=== PATIENT | male | born 1960 | race Caucasian/White ===

== ENCOUNTER 2018-09-04 14:59 | Outpatient (CLI) | payer MEDICARE ==
--- NOTE | 2018-09-04 15:43 | RAD ---
CHEST 2 VIEWS: Date: 09/04/18 HISTORY: R06.00. COMPARISON: Chest radiograph dated 03/15/17. FINDINGS: Lungs without focal confluent air space consolidation, pneumothorax, or effusion. Mild volume loss ri ght hemithorax, chronic. No acute osseous abnormality. Cardiac silhouette and mediastinal contour sim ilar. IMPRESSION: No acute intrathoracic abnormality. POS: [facility]
== END 2018-09-04 15:00 | disposition home or self-care (01) ==
LOC: RAD 14:59
PROVIDERS: ATTEND Internal Medicine Pulmonary Disease
DX: R06.00 Dyspnea, unspecified (principal)
CPT/HCPCS: 71046

== ENCOUNTER 2019-01-10 13:27 | Inpatient (IN) | payer MEDICARE ==
--- NOTE | 2019-01-10 14:27 | RAD ---
TWO VIEWS OF THE CHEST: 01/10/19 COMPARISON: 09/04/18 HISTORY: Chest pain for two days. FINDINGS: Two views of the chest show normal sized cardiomediastinal silhouette. There is no evidence of consol idation, mass, or pleural effusion. The bones are unremarkable. IMPRESSION: No evidence of acute cardiopulmonary disease. POS: [facility]
[2019-01-10 14:33] LABS: #Basophils 0.1 thou/uL (0.0-0.2); #Eosinphils 0.2 thou/uL (0.0-0.7); #Lymphocytes 2.8 thou/uL (1.20-3.40); #Monocytes 1.2 thou/uL (0.11-0.59); #Neutrophils 14.4 thou/uL (1.40-6.50); %Basophils 0.7 % (0.0-1.0); %Eosinophils 1.3 % (0.0-10.0); %Monocytes 6.6 % (0.0-10.0); %Neutrophils 76.4 % (42.0-75.0); Hemoglobin 15.7 g/dL (14.0-18.0); Mean Corpuscular HGB CONC 30.8 g/dL (32.0-36.0); Mean Corpuscular Hemoglobin 26.6 pg (27.0-31.0); Mean Corpuscular Volume 86.4 fL (78.0-98.0); Mean Platelet Volume 7.3 fL (7.4-10.4); Platelet Count 401 thou/uL (130-400); RBC Distribution Width 16.1 % (11.5-14.5); Red Blood Cell (RBC) Count 5.92 mill/uL (4.70-6.10); White Blood Cell (WBC) Count 18.9 thou/uL (4.8-10.8)
[2019-01-10 14:59] LABS: ALT (SGPT) 17 U/L (8-55); AST (SGOT) 17 U/L (5-34); Albumin 4.3 g/dL (3.5-5.0); Alkaline Phosphatase 76 U/L (40-150); Anion Gap 12 mmol/L (10-20); BUN (Urea Nitrogen) 16 mg/dL (8.4-25.7); Bilirubin, Total 0.5 mg/dL (0.2-1.2); CK (CPK) 188 U/L (30-200); Calc. Creatinine Clearance 0 mL/min (70-130); Calcium 10.3 mg/dL (7.8-10.44); Carbon Dioxide 32 mmol/L (22-29); Chloride 100 mmol/L (98-107); Estimated GFR-MDRD 43; Globulin 3.4 g/dL (2.4-3.5); Glucose 87 mg/dL (70-105); Potassium 4.7 mmol/L (3.5-5.1); Protein, Total 7.7 g/dL (6.0-8.3); Sodium 139 mmol/L (136-145)
[2019-01-10 18:02] LABS: Troponin I Less than 0.010 ng/mL (< 0.028)
[2019-01-10] MEDS ORDERED: Nitroglycerin 0.4 MG TAB (25 Tab Bottle) ONE (19:15)
[2019-01-10] MEDS: Morphine 2 MG/ML SYRINGE SLOW IVP PRN (19:22)
[2019-01-10] MEDS: Nitroglycerin 2% Ointment 1 INCH/1 GM Packet TOP SCH (19:27)
[2019-01-10] MEDS ORDERED: Ondansetron ODT 4 MG TAB PO PRN (19:28)
[2019-01-10] MEDS ORDERED: Acetaminophen 325 MG TAB PO PRN (19:28)
[2019-01-10] MEDS ORDERED: Ondansetron PF 4 MG/2 ML Vial IVP PRN (19:28)
[2019-01-10] MEDS ORDERED: Aspirin 325 MG TAB PO SCH (19:30)
[2019-01-10] MEDS ORDERED: HYDROcodone/Acetaminophen 10/325 mg Tablet PO PRN (20:33)
[2019-01-10] MEDS ORDERED: PROVENTIL INHALER 6.7 G (200 INHALATIONS) INH PRN (20:33)
[2019-01-10] MEDS ORDERED: LIDOCAINE TOP PRN (20:45)
[2019-01-10] MEDS: Diazepam 5 MG TAB PO PRN (21:03)
[2019-01-10] MEDS: tiZANidine HCl 4 MG TAB PO SCH (21:03)
[2019-01-10] MEDS: Famotidine 20 MG TAB PO SCH (21:03)
[2019-01-10] MEDS: fentaNYL 100 mcg/hour Patch TD SCH (21:04)
[2019-01-10 21:10] LABS: Troponin I Less than 0.010 ng/mL (< 0.028)
[2019-01-10 22:01] VITALS: BMI 25.7
[2019-01-11] MEDS: Sodium Chloride 0.9% 1,000 ML IV SCH ×2 (00:39→16:15)
--- NOTE | 2019-01-11 04:13 | HP ---
PRIMARY CARE PHYSICIAN: Kelly Landers MD CHIEF COMPLAINT: Chest pain. HISTORY OF PRESENT ILLNESS: Mr. Sinha is a 58-year-old man with past medical history of hypertension, gout, and rheumatoid arthritis, who had presented to [facility] earlier today after he experienced worsening chest pain and chest tightness along with some shortness of breath that is worse with activity. The patient states that these symptoms have been on and off over the last several weeks, he states that he has been under the direct care of Dr. Orellana and had undergone an echo and stress test as outpatient, which had showed signs of an anterior defect along with an ejection fraction between 45% and 50%. Dr. Orellana was planning to take the patient for a heart catheterization later next week. However, the patient states that over the last 2 to 3 days, his chest pain had been getting worse. Therefore, he had wanted to come into the emergency room to be seen for further management. Upon arriving, his portable chest x-ray was found to be normal. Cardiac enzymes were also within normal limits. The patient did display an elevated white count of 18,000. However, he is currently on oral prednisone for his underlying RA and gout, and this is chronic for him. He had denied any fever, chills, any headache, blurred vision, dizziness, any palpitations, abdominal pain, or change in his stool. He states he has a lung mass. He had recently undergone a PET scan for and he is scheduled to get a biopsy for further evaluation. The PET scan results are unknown at this time. The patient states that his bedroom is up on the 2nd floor, and walking up and down the stairs and from his room, symptoms of chest pain, chest tightness, and shortness of breath worsened. Dr. Orellana is aware that the patient is being admitted and plans for heart catheterization in the morning. REVIEW OF SYSTEMS: All other systems reviewed and found to be negative unless mentioned in the HPI. PAST MEDICAL HISTORY: Hypertension, gout, rheumatoid arthritis, and new lung mass. PAST SURGICAL HISTORY: Orthopedic surgery and lower back surgery. PSYCHIATRIC HISTORY: Significant for anxiety. SOCIAL HISTORY: The patient denies any alcohol, tobacco, or illicit drug use. KNOWN ALLERGIES: Antidepressants. CURRENT HOME MEDICATIONS: 1. Albuterol sulfate HFA inhaler one puff inhalation q.6 hours as needed for wheezing and shortness of breath. 2. Amlodipine/valsartan 10/320 one tablet oral daily. 3. Diazepam 5 mg p.o. t.i.d. as needed for anxiety. 4. Fentanyl 100 mcg patch topical every 2 days. 5. Furosemide 40 mg oral daily. 6. Hydrocodone 10/325 mg 1 tablet oral q.6 hours p.r.n. pain. 7. Lidocaine ointment one application topical t.i.d. p.r.n. pain. 8. Prednisone 5 mg p.o. daily. 9. Tizanidine 4 mg p.o. at bedtime. 10. Anoro 62.5 mcg/25 mcg one puff inhalation daily. 11. Nexium 40 mg p.o. daily. 12. Vitamin D3 5000 units p.o. daily. PHYSICAL EXAMINATION: VITAL SIGNS: BP 139/87, pulse 73, respirations 16, temperature 97.8 degrees Fahrenheit, O2 saturations 95% on room air. GENERAL: The patient is awake, alert, and oriented x3. He is currently lying comfortably in bed and in no acute distress. HEENT: Atraumatic, normocephalic. Pupils are round and reactive to light. Extraocular muscles intact. Moist mucous membranes noted. NECK: Soft and supple. Trachea midline. CARDIOVASCULAR: Positive S1 and S2. Regular rate and rhythm. No murmur auscultated. RESPIRATORY: Clear to auscultation bilaterally. No wheezes, rales, or rhonchi. ABDOMEN: Soft and nontender. Bowel sounds present. MUSCULOSKELETAL: Strength 5+ bilaterally upper and lower extremities. Moves all extremities equal. Pedal and radial pulses, 2+ bilaterally. The patient does appear to have a Homans' sign on the left lower extremity; however, no edema noted. NEUROLOGIC: Cranial nerves II through XII grossly intact. No focal deficits noted. Speech intact and normal. Gait, not assessed. SKIN: Warm, dry, and intact. The patient does have some mild ulceration noted diffuse to left foot and several left toes. PSYCHIATRIC: Good mood and affect. LABORATORY DATA: WBC 18.9, RBC 5.92, hemoglobin 15.7, platelets 401. Sodium 139, potassium 4.7, anion gap 12, BUN 16, creatinine 1.64, estimated GFR 43. Troponin less than 0.010 x3. TSH 0.6944. DIAGNOSTIC IMAGING: Portable chest x-ray showed no evidence of acute cardiopulmonary disease. ASSESSMENT AND PLAN: 1. Chest pain, Dr. Orellana is on consult and plans to take the patient down to label machine operator in the morning for cardiac catheterization for further evaluation of his chest pain. The patient recently had an echocardiogram and a cardiac stress test, which showed symptoms of an anterior defect, suspected ischemia noted, and ejection fraction between 45% and 50%. 2. Hypertension. Continue patient's home regimen and monitor blood pressure and other vital signs closely. 3. Possible new lung mass, the patient is under the care of an oncologist and a neon tube bender, Dr. Reyes, as outpatient, who had recently undergone a PET scan. He will likely need further followup for this as outpatient. 4. History of anxiety. Continue patient's home regimen. 5. Left lower extremity pain. Lower extremity Doppler ordered for further evaluation. 6. Deep venous thrombosis and gastrointestinal prophylaxis. 7. Code status is full code. DISPOSITION: Pending further workup and clinical findings. Job ID: [id number]
[2019-01-11 05:20] LABS: #Basophils 0.1 thou/uL (0.0-0.2); #Eosinphils 0.5 thou/uL (0.0-0.7); #Lymphocytes 5.2 thou/uL (1.20-3.40); #Monocytes 1.2 thou/uL (0.11-0.59); #Neutrophils 6.9 thou/uL (1.40-6.50); %Basophils 0.9 % (0.0-1.0); %Eosinophils 3.7 % (0.0-10.0); %Lymphocytes 37.2 % (21.0-51.0); %Monocytes 8.3 % (0.0-10.0); %Neutrophils 49.8 % (42.0-75.0); Hemoglobin 12.9 g/dL (14.0-18.0); Mean Corpuscular HGB CONC 30.8 g/dL (32.0-36.0); Mean Corpuscular Hemoglobin 26.5 pg (27.0-31.0); Mean Corpuscular Volume 86.2 fL (78.0-98.0); Mean Platelet Volume 7.2 fL (7.4-10.4); Platelet Count 334 thou/uL (130-400); RBC Distribution Width 16.1 % (11.5-14.5); Red Blood Cell (RBC) Count 4.87 mill/uL (4.70-6.10); White Blood Cell (WBC) Count 13.9 thou/uL (4.8-10.8)
[2019-01-11 05:37] LABS: Anion Gap 8 mmol/L (10-20); BUN (Urea Nitrogen) 16 mg/dL (8.4-25.7); Calc. Creatinine Clearance 71 mL/min (70-130); Calcium 8.9 mg/dL (7.8-10.44); Carbon Dioxide 27 mmol/L (22-29); Cardiac Risk 7.8 (Less than 4.5); Chloride 104 mmol/L (98-107); Cholesterol 195 mg/dl (< 200 Desired); Estimated GFR-MDRD 53; Glucose 149 mg/dL (70-105); HDL Cholesterol 25 mg/dL (>60 Neg Risk); LDL Cholesterol, Calculated 119 mg/dL; Potassium 3.7 mmol/L (3.5-5.1); Sodium 135 mmol/L (136-145); Triglycerides 254 mg/dL (Less than 150)
[2019-01-11] MEDS ORDERED: hydrALAZINE 20 MG/ML VIAL SLOW IVP PRN (07:43)
[2019-01-11] MEDS ORDERED: Zolpidem Tartrate 5 MG TAB PO PRN (07:43)
[2019-01-11] MEDS ORDERED: Artificial Tears 18 DROP/0.9 ML EA EYE PRN (07:43)
[2019-01-11] MEDS ORDERED: Loratadine 10 MG TAB PO PRN (07:43)
[2019-01-11] MEDS ORDERED: Bisacodyl 10 MG SUPP PR PRN (07:43)
[2019-01-11] MEDS ORDERED: Sodium Chloride 0.65% Nasal 44 ML BOT EA NARE PRN (07:43)
[2019-01-11] MEDS ORDERED: Senokot S 8.6-50 MG TAB PO PRN (07:43)
[2019-01-11] MEDS ORDERED: Cepastat Lozenges 1 LOZ PO PRN (07:43)
[2019-01-11] MEDS ORDERED: Diabetic Tussin 200 MG/10 ML UDCUP PO PRN (07:43)
[2019-01-11] MEDS ORDERED: Calcium Carbonate 500 MG ChewTAB PO PRN (07:43)
[2019-01-11] MEDS: Morphine 2 MG/ML SYRINGE SLOW IVP PRN (08:50)
[2019-01-11] MEDS ORDERED: Aspirin 81 mg Enteric Coated Tablet PO SCH (09:00)
[2019-01-11] MEDS ORDERED: Non-Formulary Item 1 EACH (Amlodipine Besylate/Valsartan [Amlodipine-Valsartan 10-320 Mg] PO SCH (09:00)
[2019-01-11] MEDS ORDERED: Amlodipine 10 MG TAB PO SCH (09:00)
--- NOTE | 2019-01-11 10:19 | PDOC.PN ---
- Subjective Encounter Start Date: 01/11/19 Encounter Start Time: 07:30 -: old records requested/rev Patient seen and examined. No new complaints. No overnight events - Objective Resuscitation Status - Order Detail: 01/10/19 19:28 Resuscitation Status Routine Co-Sign Provider: Resuscitation Status: FULL: Full Resuscitation MAR Reviewed: Yes Vital Signs & Weight: Vital Signs (12 hours) Temp Pulse Resp BP Pulse Ox 01/11/19 08:15 97.5 F L 73 14 116/68 93 L 01/11/19 07:03 70 16 93 L 01/11/19 04:00 97.4 F L 68 18 95/53 L 92 L 01/10/19 23:58 83 94/59 L 01/10/19 23:01 76 16 97 Weight Weight 190 lb 3.2 oz Result Diagrams: 01/11/19 04:52 01/11/19 04:52 EKG Reviewed by me: Yes Phys Exam - Physical Examination Constitutional: NAD HEENT: PERRLA, moist MMs, sclera anicteric Neck: no JVD, supple Respiratory: no wheezing, no rales, no rhonchi Cardiovascular: RRR, no significant murmur, no rub Gastrointestinal: soft, non-tender, no distention, positive bowel sounds Musculoskeletal: no edema, pulses present lef great toe discoloration noted Neurological: non-focal, normal sensation, moves all 4 limbs Lymphatic: no nodes Psychiatric: normal affect, A&O x 3 Skin: no rash, normal turgor Dx/Plan (1) Chest pain Code(s): R07.9 - CHEST PAIN, UNSPECIFIED Status: Acute (2) CKD (chronic kidney disease) stage 3, GFR 30-59 ml/min Code(s): N18.3 - CHRONIC KIDNEY DISEASE, STAGE 3 (MODERATE) Status: Chronic (3) COPD (chronic obstructive pulmonary disease) Status: Chronic (4) Chronic systolic heart failure, ACC/AHA stage C Code(s): I50.22 - CHRONIC SYSTOLIC (CONGESTIVE) HEART FAILURE Status: Chronic (5) GERD (gastroesophageal reflux disease) Code(s): K21.9 - GASTRO-ESOPHAGEAL REFLUX DISEASE WITHOUT ESOPHAGITIS Status: Chronic (6) Gout Code(s): M10.9 - GOUT, UNSPECIFIED Status: Chronic (7) Hypertension Code(s): I10 - ESSENTIAL (PRIMARY) HYPERTENSION Status: Chronic (8) Rheumatoid arthritis Code(s): M06.9 - RHEUMATOID ARTHRITIS, UNSPECIFIED Status: Chronic - Plan cont current plan of care, plan discussed w/ family * today cardiac cath and further plan based on cardiac cath result * medication reviewed as below * symptomatic treatment. Review of Systems - Review of Systems ENT: negative: Ear Pain, Ear Discharge, Nose Pain, Nose Discharge, Nose Congestion, Mouth Pain, Mouth Swelling, Throat Pain, Throat Swelling, Other Respiratory: negative: Cough, Dry, Shortness of Breath, Hemoptysis, SOB with Excertion, Pleuritic Pain, Sputum, Wheezing Cardiovascular: negative: chest pain, palpitations, orthopnea, paroxysmal nocturnal dyspnea, edema, light headedness, other Gastrointestinal: negative: Nausea, Vomiting, Abdominal Pain, Diarrhea, Constipation, Melena, Hematochezia, Other Genitourinary: negative: Dysuria, Frequency, Incontinence, Hematuria, Retention , Other Musculoskeletal: negative: Neck Pain, Shoulder Pain, Arm Pain, Back Pain, Hand Pain, Leg Pain, Foot Pain, Other - Medications/Allergies Allergies/Adverse Reactions: Allergies Allergy/AdvReac Type Severity Reaction Status Date / Time No Known Allergies Allergy Unverified 01/10/19 23:24 Medications: Current Medications Acetaminophen (Tylenol) 650 mg PO Q4H PRN PRN Reason: Headache/Fever/Mild Pain (1-3) Hydrocodone Bitart/Acetaminophen ([place] 5/325) 1 tab PO Q4H PRN PRN Reason: Moderate Pain (4-6) Albuterol Sulfate (Proventil Hfa) 1 puff INH Q6HR PRN PRN Reason: Wheezing Albuterol/Ipratropium (Duoneb) 3 ml NEB [id number] [facility] Last Admin: 01/11/19 07:03 Dose: 3 ml Amlodipine Besylate (Norvasc) 10 mg PO DAILY [facility] Artificial Tears (Tears Naturale) 2 drop EA EYE PRN PRN PRN Reason: Dry Eyes Aspirin (Ecotrin) 81 mg PO DAILY [facility] Bisacodyl (Dulcolax) 10 mg [place] DAILYPRN PRN PRN Reason: Constipation Calcium Carbonate (Tums) 1,000 mg PO Q4H PRN PRN Reason: Heartburn or Indigestion Cholecalciferol (Vitamin D3) 5,000 units PO DAILY [facility] Diazepam (Valium) 5 mg PO TID PRN PRN Reason: Anxiety Last Admin: 01/10/19 21:03 Dose: 5 mg Enoxaparin Sodium (Lovenox) 40 mg SC 0900 [facility] Famotidine (Pepcid) 20 mg PO BID [facility] Last Admin: 01/10/19 21:03 Dose: 20 mg Fentanyl (Duragesic) 100 mcg TD Q2D [facility] Last Admin: 01/10/19 21:04 Dose: Not Given Furosemide (Lasix) 40 mg PO DAILY [facility] Guaifenesin (Robitussin Sf) 200 mg PO Q4H PRN PRN Reason: Cough Hydralazine HCl (Apresoline) 10 mg SLOW IVP Q4H PRN PRN Reason: SBP > 180 and HR < 70 Sodium Chloride (Normal Saline 0.9%) 1,000 mls @ 100 mls/hr IV .Q10H [facility] Last Admin: 01/11/19 00:39 Dose: 1,000 mls Loratadine (Claritin) 10 mg PO DAILYPRN PRN PRN Reason: Sinus Symptoms Morphine Sulfate (Morphine) 2 mg SLOW IVP Q4H PRN PRN Reason: Chest Pain Last Admin: 01/11/19 08:50 Dose: 2 mg Nitroglycerin (Nitro-Bid 2% Ointment) 1 inch TOP BID [facility] Last Admin: 01/10/19 19:27 Dose: 1 inch Ondansetron HCl (Zofran Odt) 4 mg PO Q6H PRN PRN Reason: Nausea/Vomiting Ondansetron HCl (Zofran) 4 mg IVP Q6H PRN PRN Reason: Nausea/Vomiting Lidocaine [Lidocaine (5% Ointment]) 0 each TOP TID PRN PRN Reason: Pain Prednisone (Prednisone) 5 mg PO DAILY [facility] Senna/Docusate Sodium (Senokot S) 2 tab PO BID PRN PRN Reason: Constipation Sodium Chloride (Flush - Normal Saline) 10 ml IVF Q12HR [facility] Last Admin: 01/10/19 21:04 Dose: 10 ml Sodium Chloride (Flush - Normal Saline) 10 ml IVF PRN PRN PRN Reason: Saline Flush Sodium Chloride ([place] Nasal [place] 0.65%) 0 ml EA NARE QIDPRN PRN PRN Reason: Nasal Congestion Throat Lozenges (Cepastat Lozenges) 1 yariel PO Q2H PRN PRN Reason: Sore Throat Tizanidine HCl (Zanaflex) 4 mg PO HS [facility] Last Admin: 01/10/19 21:03 Dose: 4 mg Valsartan (Diovan) 320 mg PO DAILY [facility] Zolpidem Tartrate (Ambien) 5 mg PO HSPRN PRN PRN Reason: Insomnia
--- NOTE | 2019-01-11 10:46 | ULT ---
EXAM: Left lower extremity venous duplex: Deep veins evaluated with color Doppler, spectral analysis, and compression. INDICATIONS: Left lower extremity pain and edema. FINDINGS: Deep veins interrogated include common femoral vein, femoral vein, popliteal vein, and post erior tibial vein. These veins show normal compression and blood flow. No evidence of DVT. IMPRESSION: Negative Left venous duplex exam.
[2019-01-11] MEDS ORDERED: Lidocaine 1% (PF) 30 ML VIAL ONE (12:14)
[2019-01-11] MEDS ORDERED: Fentanyl 100 MCG/2 ML VIAL ONE (13:05)
[2019-01-11] MEDS ORDERED: Midazolam HCl 2 mg/2 ml Vial ONE (13:05)
[2019-01-11] MEDS ORDERED: Nitroglycerin 100MG/250ML BOT 250 ML ONE (13:17)
[2019-01-11] MEDS ORDERED: Heparin 10,000 UNITS/1 ML VIAL ONE (13:29)
[2019-01-11] MEDS ORDERED: TICAGRELOR 90 MG TABLET ONE (13:54)
[2019-01-11] MEDS ORDERED: Morphine 4 MG/ML VIAL SLOW IVP PRN (13:55)
[2019-01-11] MEDS ORDERED: Nitroglycerin 0.4 MG TAB (25 Tab Bottle) SL PRN (13:55)
--- NOTE | 2019-01-11 14:29 | CON ---
DATE OF CONSULTATION: 01/11/2019 REASON FOR CONSULTATION: Chest pain. HISTORY OF PRESENT ILLNESS: Mr. Sinha is a pleasant 58-year-old white gentleman, who comes to the hospital for chest pain. He has been following up with me. He had a recent stress test that showed anterior ischemia and he was scheduled to have a heart catheterization on 16 of this month. He comes in as his pain is getting worse, so he was admitted for further evaluation and care. He has been ruled out for non-STEMI. However, he has a known defect on his MPI. PAST MEDICAL HISTORY: 1. Hypertension. 2. Gout. 3. Rheumatoid arthritis. 4. Lung mass that has not been worked up. SURGICAL HISTORY: 1. Low back surgery. 2. Some sort of orthopedic surgery. SOCIAL HISTORY: No alcohol, tobacco, or drugs. OUTPATIENT MEDICATIONS: Include; 1. Albuterol inhaler. 2. Amlodipine/valsartan 10/320 a day. 3. Diazepam. 4. Fentanyl patch. 5. Furosemide 40 mg a day. 6. Hydrocodone p.r.n. 7. Lidocaine topical p.r.n. 8. Prednisone 5 mg a day. 9. Tizanidine. 10. Anoro Ellipta. 11. Nexium 40 mg a day. 12. Vitamin D3. ALLERGIES: ANTIDEPRESSANT. REVIEW OF SYSTEMS: A 12-point review of systems was done and was all negative unless stated in the history of present illness. PHYSICAL EXAMINATION: VITAL SIGNS: Temperature 98.4, pulse 67, respiratory rate 16, sat 95% on room air, blood pressure 115/70. GENERAL: Awake, alert, and oriented x3, in no distress. HEENT: Normocephalic and atraumatic. NECK: Supple. LUNGS: Clear. CARDIOVASCULAR: S1, S2. No S3 or S4. No murmurs. ABDOMEN: Soft. Positive bowel sounds. EXTREMITIES: No edema. SKIN: Warm and dry. LABORATORY DATA: Laboratory work was reviewed. White count elevated 18 down to 13, hemoglobin 12, hematocrit 42, platelet count of 334. Chemistries were reviewed. Creatinine was 1.6 on admission, down 1.3. Troponin was negative x3. TSH is normal. Triglycerides of 254, cholesterol 195, LDL of 119, HDL of 25. ASSESSMENT AND PLAN: 1. Chest pain. Likely cardiac in nature with an abnormal stress test with anterior ischemia on MPI. We will plan on taking him to the catheterization lab for further evaluation. We spoke at length of the risks and benefits of the procedure. We had already spoken about this in the past. He agrees to proceed sooner now. 2. Further recommendations per results of coronary angiogram. Job ID: [id number]
[2019-01-11] MEDS ORDERED: Iopamidol 370 76% 50 ML VIAL FS ONE (15:45)
[2019-01-11] MEDS ORDERED: Iopamidol 370 76% 100 ML VIAL ONE (15:45)
[2019-01-11] MEDS: Enoxaparin Sodium 40 MG/0.4 ML SYRINGE SC SCH (16:12)
[2019-01-11] MEDS: Famotidine 20 MG TAB PO SCH ×2 (16:12→20:22)
[2019-01-11] MEDS: Nitroglycerin 2% Ointment 1 INCH/1 GM Packet TOP SCH ×2 (16:13→20:26)
[2019-01-11] MEDS: Furosemide 40 MG TAB PO SCH (16:23)
[2019-01-11] MEDS: predniSONE 5 MG TAB PO SCH (16:23)
[2019-01-11] MEDS: Carvedilol 3.125 MG TAB PO SCH (16:23)
[2019-01-11] MEDS: Valsartan 80 MG TAB PO SCH (16:24)
[2019-01-11] MEDS: fentaNYL 100 mcg/hour Patch TD SCH (17:24)
[2019-01-11] MEDS: Diazepam 5 MG TAB PO PRN (19:22)
[2019-01-11] MEDS: Atorvastatin Calcium 40 MG TAB PO SCH (20:22)
[2019-01-11] MEDS: tiZANidine HCl 4 MG TAB PO SCH (20:24)
[2019-01-11] MEDS: TICAGRELOR 90 MG TABLET PO SCH (20:24)
[2019-01-12 06:12] LABS: #Basophils 0.1 thou/uL (0.0-0.2); #Eosinphils 0.4 thou/uL (0.0-0.7); #Lymphocytes 4.1 thou/uL (1.20-3.40); #Monocytes 1.1 thou/uL (0.11-0.59); %Basophils 0.8 % (0.0-1.0); %Eosinophils 2.9 % (0.0-10.0); %Lymphocytes 27.7 % (21.0-51.0); %Monocytes 7.5 % (0.0-10.0); %Neutrophils 61.1 % (42.0-75.0); Hemoglobin 14.8 g/dL (14.0-18.0); Mean Corpuscular HGB CONC 29.1 g/dL (32.0-36.0); Mean Corpuscular Hemoglobin 24.9 pg (27.0-31.0); Mean Corpuscular Volume 85.7 fL (78.0-98.0); Mean Platelet Volume 7.6 fL (7.4-10.4); Platelet Count 356 thou/uL (130-400); RBC Distribution Width 16.7 % (11.5-14.5); Red Blood Cell (RBC) Count 5.92 mill/uL (4.70-6.10); White Blood Cell (WBC) Count 14.8 thou/uL (4.8-10.8)
[2019-01-12 06:35] LABS: ALT (SGPT) 13 U/L (8-55); AST (SGOT) 15 U/L (5-34); Albumin 3.7 g/dL (3.5-5.0); Alkaline Phosphatase 69 U/L (40-150); Anion Gap 11 mmol/L (10-20); BUN (Urea Nitrogen) 11 mg/dL (8.4-25.7); Bilirubin, Total 0.4 mg/dL (0.2-1.2); Calc. Creatinine Clearance 74 mL/min (70-130); Calcium 9.6 mg/dL (7.8-10.44); Carbon Dioxide 27 mmol/L (22-29); Chloride 103 mmol/L (98-107); Estimated GFR-MDRD 59; Globulin 3.1 g/dL (2.4-3.5); Glucose 106 mg/dL (70-105); Potassium 3.7 mmol/L (3.5-5.1); Protein, Total 6.8 g/dL (6.0-8.3); Sodium 137 mmol/L (136-145)
[2019-01-12] MEDS: Carvedilol 3.125 MG TAB PO SCH ×2 (09:48→15:51)
[2019-01-12] MEDS: Valsartan 80 MG TAB PO SCH (09:48)
[2019-01-12] MEDS: Aspirin Chewable 81 MG TAB PO SCH (09:48)
[2019-01-12] MEDS: predniSONE 5 MG TAB PO SCH (09:49)
[2019-01-12] MEDS: TICAGRELOR 90 MG TABLET PO SCH (09:49)
[2019-01-12] MEDS: Famotidine 20 MG TAB PO SCH ×2 (09:50→20:52)
[2019-01-12] MEDS: Furosemide 40 MG TAB PO SCH (09:50)
[2019-01-12] MEDS: Nitroglycerin 2% Ointment 1 INCH/1 GM Packet TOP SCH ×2 (09:52→21:15)
[2019-01-12] MEDS: Diazepam 5 MG TAB PO PRN ×2 (09:57→20:52)
[2019-01-12] MEDS: HYDROcodone/Acetaminophen 5/325 mg Tablet PO PRN (09:58)
[2019-01-12] MEDS: Enoxaparin Sodium 40 MG/0.4 ML SYRINGE SC SCH (10:00)
--- NOTE | 2019-01-12 10:25 | PDOC.PN ---
- Subjective Encounter Start Date: 01/12/19 Encounter Start Time: 07:50 Patient seen and examined. No new complaints. No overnight events - Objective Resuscitation Status - Order Detail: 01/10/19 19:28 Resuscitation Status Routine Co-Sign Provider: Resuscitation Status: FULL: Full Resuscitation MAR Reviewed: Yes Vital Signs & Weight: Vital Signs (12 hours) Temp Pulse Resp BP Pulse Ox 01/12/19 08:00 97.1 F L 70 16 143/89 H 95 01/12/19 07:19 79 20 95 01/12/19 04:15 98 F 68 12 143/70 H 96 01/12/19 00:18 94 L Weight Weight 183 lb 11.2 oz I&O: 01/11/19 01/12/19 01/13/19 06:59 06:59 06:59 Intake Total 540 Output Total 750 Balance -210 Result Diagrams: 01/12/19 05:30 01/12/19 05:30 EKG Reviewed by me: Yes Phys Exam - Physical Examination Constitutional: NAD HEENT: PERRLA, moist MMs, sclera anicteric Neck: no JVD, supple Respiratory: no wheezing, no rales, no rhonchi Cardiovascular: RRR, no significant murmur, no rub Gastrointestinal: soft, non-tender, no distention, positive bowel sounds Musculoskeletal: no edema, pulses present Neurological: non-focal, normal sensation, moves all 4 limbs Lymphatic: no nodes Psychiatric: normal affect, A&O x 3 Skin: no rash, normal turgor Dx/Plan (1) Chest pain Code(s): R07.9 - CHEST PAIN, UNSPECIFIED Status: Acute (2) CKD (chronic kidney disease) stage 3, GFR 30-59 ml/min Code(s): N18.3 - CHRONIC KIDNEY DISEASE, STAGE 3 (MODERATE) Status: Chronic (3) COPD (chronic obstructive pulmonary disease) Status: Chronic (4) GERD (gastroesophageal reflux disease) Code(s): K21.9 - GASTRO-ESOPHAGEAL REFLUX DISEASE WITHOUT ESOPHAGITIS Status: Chronic (5) Gout Code(s): M10.9 - GOUT, UNSPECIFIED Status: Chronic (6) Hypertension Code(s): I10 - ESSENTIAL (PRIMARY) HYPERTENSION Status: Chronic (7) Rheumatoid arthritis Code(s): M06.9 - RHEUMATOID ARTHRITIS, UNSPECIFIED Status: Chronic (8) CAD (coronary artery disease) Code(s): I25.10 - ATHSCL HEART DISEASE OF [place] CORONARY ARTERY W/O ANG PCTRS Status: Acute Comment: found with severe mild LAD lesion, s/p BMS placement (9) S/P coronary artery stent placement Status: Acute Comment: BMS placement in mid LAD (10) Chronic stage c diastolic heart failure Code(s): I50.32 - CHRONIC DIASTOLIC (CONGESTIVE) HEART FAILURE Status: Chronic (11) Cellulitis of toe, left Code(s): L03.032 - CELLULITIS OF LEFT TOE Status: Acute - Plan cont current plan of care, plan discussed w/ family, continue antibiotics * add keflex * check uric acid,and crp * medication reviewed as below * symptomatic treatment * spoke with oncology and recommended outpt follow up. Review of Systems - Review of Systems ENT: negative: Ear Pain, Ear Discharge, Nose Pain, Nose Discharge, Nose Congestion, Mouth Pain, Mouth Swelling, Throat Pain, Throat Swelling, Other Respiratory: negative: Cough, Dry, Shortness of Breath, Hemoptysis, SOB with Excertion, Pleuritic Pain, Sputum, Wheezing Cardiovascular: negative: chest pain, palpitations, orthopnea, paroxysmal nocturnal dyspnea, edema, light headedness, other Gastrointestinal: negative: Nausea, Vomiting, Abdominal Pain, Diarrhea, Constipation, Melena, Hematochezia, Other Genitourinary: negative: Dysuria, Frequency, Incontinence, Hematuria, Retention , Other Musculoskeletal: negative: Neck Pain, Shoulder Pain, Arm Pain, Back Pain, Hand Pain, Leg Pain, Foot Pain, Other Skin: negative: Rash, Lesions, Bereket, Bruising, Other - Medications/Allergies Allergies/Adverse Reactions: Allergies Allergy/AdvReac Type Severity Reaction Status Date / Time No Known Allergies Allergy Unverified 01/10/19 23:24 Medications: Current Medications Acetaminophen (Tylenol) 650 mg PO Q4H PRN PRN Reason: Headache/Fever/Mild Pain (1-3) Hydrocodone Bitart/Acetaminophen ([place] 5/325) 1 tab PO Q4H PRN PRN Reason: Moderate Pain (4-6) Last Admin: 01/12/19 09:58 Dose: 1 tab Albuterol Sulfate (Proventil Hfa) 1 puff INH Q6HR PRN PRN Reason: Wheezing Albuterol/Ipratropium (Duoneb) 3 ml NEB [id number] [facility] Last Admin: 01/12/19 07:19 Dose: 3 ml Artificial Tears (Tears Naturale) 2 drop EA EYE PRN PRN PRN Reason: Dry Eyes Aspirin (Aspirin Chewable) 81 mg PO DAILY [facility] Last Admin: 01/12/19 09:48 Dose: 81 mg Atorvastatin Calcium (Lipitor) 80 mg PO HS [facility] Last Admin: 01/11/19 20:22 Dose: 80 mg Bisacodyl (Dulcolax) 10 mg [place] DAILYPRN PRN PRN Reason: Constipation Calcium Carbonate (Tums) 1,000 mg PO Q4H PRN PRN Reason: Heartburn or Indigestion Carvedilol (Coreg) 3.125 mg PO BID[facility] Last Admin: 01/12/19 09:48 Dose: 3.125 mg Cholecalciferol (Vitamin D3) 5,000 units PO DAILY [facility] Last Admin: 01/12/19 09:47 Dose: 5,000 units Diazepam (Valium) 5 mg PO TID PRN PRN Reason: Anxiety Last Admin: 01/12/19 09:57 Dose: 5 mg Enoxaparin Sodium (Lovenox) 40 mg SC 0900 [facility] Last Admin: 01/12/19 10:00 Dose: 40 mg Famotidine (Pepcid) 20 mg PO BID [facility] Last Admin: 01/12/19 09:50 Dose: 20 mg Fentanyl (Duragesic) 100 mcg TD Q2D [facility] Last Admin: 01/11/19 17:24 Dose: 100 mcg Furosemide (Lasix) 40 mg PO DAILY [facility] Last Admin: 01/12/19 09:50 Dose: 40 mg Guaifenesin (Robitussin Sf) 200 mg PO Q4H PRN PRN Reason: Cough Hydralazine HCl (Apresoline) 10 mg SLOW IVP Q4H PRN PRN Reason: SBP > 180 and HR < 70 Loratadine (Claritin) 10 mg PO DAILYPRN PRN PRN Reason: Sinus Symptoms Morphine Sulfate (Morphine) 2 mg SLOW IVP Q4H PRN PRN Reason: Chest Pain Last Admin: 01/11/19 08:50 Dose: 2 mg Morphine Sulfate (Morphine) 2 mg SLOW IVP Q4H PRN PRN Reason: Moderate Chest Pain (4-6) Nitroglycerin (Nitro-Bid 2% Ointment) 1 inch TOP BID [facility] Last Admin: 01/12/19 09:52 Dose: 1 inch Nitroglycerin (Nitrostat) 0.4 mg SL Q5MIN PRN PRN Reason: Chest Pain Ondansetron HCl (Zofran Odt) 4 mg PO Q6H PRN PRN Reason: Nausea/Vomiting Ondansetron HCl (Zofran) 4 mg IVP Q6H PRN PRN Reason: Nausea/Vomiting Lidocaine [Lidocaine (5% Ointment]) 0 each TOP TID PRN PRN Reason: Pain Prednisone (Prednisone) 5 mg PO DAILY [facility] Last Admin: 01/12/19 09:49 Dose: 5 mg Senna/Docusate Sodium (Senokot S) 2 tab PO BID PRN PRN Reason: Constipation Sodium Chloride (Flush - Normal Saline) 10 ml IVF Q12HR [facility] Last Admin: 01/12/19 09:53 Dose: 10 ml Sodium Chloride (Flush - Normal Saline) 10 ml IVF PRN PRN PRN Reason: Saline Flush Sodium Chloride ([place] Nasal [place] 0.65%) 0 ml EA NARE QIDPRN PRN PRN Reason: Nasal Congestion Throat Lozenges (Cepastat Lozenges) 1 yariel PO Q2H PRN PRN Reason: Sore Throat Ticagrelor (Brilinta) 90 mg PO BID [facility] Last Admin: 01/12/19 09:49 Dose: 90 mg Tizanidine HCl (Zanaflex) 4 mg PO HS [facility] Last Admin: 01/11/19 20:24 Dose: 4 mg Valsartan (Diovan) 320 mg PO DAILY [facility] Last Admin: 01/12/19 09:48 Dose: 320 mg Zolpidem Tartrate (Ambien) 5 mg PO HSPRN PRN PRN Reason: Insomnia
[2019-01-12 11:48] LABS: CRP (Inflammatory) Less than 0.50 mg/dL (= or < 0.5); Uric Acid 7.5 mg/dL (3.5-7.2)
--- NOTE | 2019-01-12 15:33 | PDOC.CTH ---
Cardiology Progress Note - Subjective Since his stent yesterday he feels better overall but has this sensation of SOB which he did not have before his stents. - Objective Vital Signs Temp Pulse Pulse Pulse Resp BP BP 01/12/19 13:07 86 16 01/12/19 11:54 96.6 F L 92 18 01/12/19 10:55 91 93 137/71 110/68 01/12/19 08:00 97.1 F L 70 16 01/12/19 07:19 79 20 01/12/19 04:15 98 F 68 12 BP Pulse Ox Pulse Ox Pulse Ox 01/12/19 13:07 95 01/12/19 11:54 110/68 95 01/12/19 10:55 92 L 96 01/12/19 08:00 143/89 H 96 01/12/19 07:19 95 01/12/19 04:15 143/70 H 96 Weight 183 lb 11.2 oz 01/11/19 01/12/19 01/13/19 06:59 06:59 06:59 Intake Total 540 Output Total 750 Balance -210 - Physical Examination General/Neuro: alert & oriented x3, NAD Neck: no JVD present Lungs: CTA, unlabored respirations Heart: RRR Abdomen: NT/ND Extremities: + edema B (no edema) - Telemetry Telemetry Rhythm: NSR - Labs Result Diagrams: 01/12/19 05:30 01/12/19 05:30 Troponin/CKMB Troponin I Less than 0.010 ng/mL (< 0.028) 01/10/19 20:39 - Assessment/Plan 1. Unstable angina 2. CAD 3. S/P BMS to mid LAD. 4. SOB 5. PVD PLAN: - The SOB he is describing is typical of a side effect from brilinta. Will plan on switching to Plavix. - Hold overnight and if he remains stable in the morning may discharge home. - Follow up in the office in 1 month.
[2019-01-12] MEDS: Cephalexin 250 MG CAP PO SCH ×2 (15:51→20:51)
[2019-01-12] MEDS: Atorvastatin Calcium 40 MG TAB PO SCH (20:51)
[2019-01-12] MEDS: tiZANidine HCl 4 MG TAB PO SCH (20:52)
[2019-01-13] MEDS: HYDROcodone/Acetaminophen 5/325 mg Tablet PO PRN (04:15)
[2019-01-13 06:34] LABS: #Basophils 0.1 thou/uL (0.0-0.2); #Eosinphils 0.6 thou/uL (0.0-0.7); #Lymphocytes 5.5 thou/uL (1.20-3.40); #Monocytes 1.5 thou/uL (0.11-0.59); #Neutrophils 9.2 thou/uL (1.40-6.50); %Basophils 0.8 % (0.0-1.0); %Eosinophils 3.6 % (0.0-10.0); %Lymphocytes 32.3 % (21.0-51.0); %Monocytes 9.1 % (0.0-10.0); %Neutrophils 54.3 % (42.0-75.0); Hemoglobin 14.7 g/dL (14.0-18.0); Mean Corpuscular HGB CONC 31.3 g/dL (32.0-36.0); Mean Corpuscular Hemoglobin 26.9 pg (27.0-31.0); Mean Corpuscular Volume 85.8 fL (78.0-98.0); Mean Platelet Volume 7.8 fL (7.4-10.4); Platelet Count 340 thou/uL (130-400); RBC Distribution Width 16.4 % (11.5-14.5); Red Blood Cell (RBC) Count 5.47 mill/uL (4.70-6.10); White Blood Cell (WBC) Count 16.9 thou/uL (4.8-10.8)
[2019-01-13] MEDS ORDERED: Clopidogrel Bisulfate 75 MG TAB PO SCH (09:00)
--- NOTE | 2019-01-13 09:30 | PDOC.CTH ---
Cardiology Progress Note - Subjective Patient with c/o SOB again today. SOB with exertion. Denies CP. Denies palpitations. - Objective Vital Signs Temp Pulse Resp BP Pulse Ox 01/13/19 06:57 74 16 94 L 01/13/19 04:00 97.6 F 85 16 118/72 95 01/13/19 00:48 79 14 94 L Weight 184 lb 14.4 oz 01/12/19 01/13/19 01/14/19 06:59 06:59 06:59 Intake Total 540 1110 Output Total 750 700 Balance -210 410 - Physical Examination General/Neuro: alert & oriented x3 Neck: no JVD present Lungs: CTA Heart: RRR Abdomen: NT/ND Extremities: other: (no edema) - Telemetry Telemetry Rhythm: SR - Labs Result Diagrams: 01/13/19 06:09 01/12/19 05:30 Troponin/CKMB Troponin I Less than 0.010 ng/mL (< 0.028) 01/10/19 20:39 - Assessment/Plan 1. Unstable angina 2. CAD 3. S/P BMS to mid LAD. 4. SOB 5. PVD PLAN: SOB unchanged despite changing Brilinta to Plavix. May improve with time. EF 50 % on LHC. Will repeat CXR and add BNP. If normal, discharge today. SOB may be due to underlying COPD
[2019-01-13] MEDS: Famotidine 20 MG TAB PO SCH (09:32)
[2019-01-13] MEDS: predniSONE 5 MG TAB PO SCH (09:32)
[2019-01-13] MEDS: Furosemide 40 MG TAB PO SCH (09:32)
[2019-01-13] MEDS: Aspirin Chewable 81 MG TAB PO SCH (09:32)
[2019-01-13] MEDS: Valsartan 80 MG TAB PO SCH (09:33)
[2019-01-13] MEDS: Cephalexin 250 MG CAP PO SCH (09:33)
[2019-01-13] MEDS: Carvedilol 3.125 MG TAB PO SCH (09:34)
[2019-01-13] MEDS: Nitroglycerin 2% Ointment 1 INCH/1 GM Packet TOP SCH (09:35)
[2019-01-13] MEDS: Enoxaparin Sodium 40 MG/0.4 ML SYRINGE SC SCH (09:35)
--- NOTE | 2019-01-13 10:26 | RAD ---
Portable chest: HISTORY: Shortness of breath COMPARISON: none FINDINGS: Lung martin are clear. Heart and mediastinum appear unremarkable. Vascularity is normal. Visualized osseous structures unremarkable. IMPRESSION: No acute finding
[2019-01-13] MEDS: Diazepam 5 MG TAB PO PRN (10:48)
--- NOTE | 2019-01-13 11:11 | DIS ---
DATE OF ADMISSION: 01/10/2019 DATE OF DISCHARGE: 01/13/2019 DISCHARGE DISPOSITION: Home. PRIMARY DISCHARGE DIAGNOSES: 1. Dyspnea due to angina equivalent. 2. Status post cardiac cath and found with mid LAD stenosis, status post bare-metal stent placement. 3. Left great toe cellulitis. 4. Chest pain due to coronary artery disease. SECONDARY DISCHARGE DIAGNOSES: 1. Rheumatoid arthritis. 2. Hypertension. 3. Gout. 4. Gastroesophageal reflux disease. 5. Chronic obstructive pulmonary disease. 6. Chronic kidney disease stage 3. 7. Chronic stage C diastolic heart failure. 8. History of lung cancer. PRIMARY PROCEDURE/OPERATION: Cardiac catheterization was performed by Dr. Orellana and found with mid LAD lesion and bare-metal stent placed. RADIOLOGICAL INVESTIGATION: Chest x-ray negative. Repeat chest x-ray negative. Ultrasound negative for DVT. SIGNIFICANT LABORATORY DATA: Hemoglobin 14.7, WBC 16.9, platelets 340. Sodium 137, creatinine 1.26. LFT normal. Cardiac enzyme negative. LDL 119. TSH 0.69. DISCHARGE MEDICATIONS: 1. Aspirin 81 mg p.o. daily. 2. Plavix 75 mg p.o. daily. 3. Lipitor 80 mg p.o. at bedtime. 4. Coreg 3.125 mg p.o. b.i.d. 5. Keflex 500 mg p.o. t.i.d. Continue following medications; 1. Ventolin HFA one puff q.6 hourly p.r.n. 2. Vista 10 one tablet q.6 hourly p.r.n. 3. Amlodipine with valsartan 10/320 one tablet daily. 4. Vitamin D3 of 5000 units p.o. daily. 5. Diazepam 5 mg t.i.d. p.r.n. 6. Nexium 40 mg daily. 7. Duragesic patch every third day. 8. Lasix 40 mg p.o. daily. 9. Lidoderm ointment as directed. 10. Prednisone 10 mg daily. 11. Zanaflex 4 mg p.o. at bedtime. 12. Breo Ellipta one inhalation daily. CONTRAINDICATION: None. CODE STATUS: Full code. INPATIENT REAL ESTATE PHOTOGRAPHER: Dr. Orellana was following while in hospital. TEST RESULTS PENDING ON DISCHARGE: None. ALLERGIES: NO KNOWN DRUG ALLERGY. DISCHARGE PLAN: Posthospital, the patient will follow up with Dr. Orellana and Dr. Landers. The patient is also instructed to follow up with Dr. Moreno. HOSPITAL COURSE: A 58-year-old male, who was having outpatient basis chest pain and dyspnea and that is why Dr. Orellana did a stress test that was abnormal and he was directed to admission. He had negative cardiac enzymes during this hospital course, but he was keep complaining of shortness of breath. His chest x-ray was unremarkable. He was also complaining of left great toe pain and that is why we treated his cellulitis of left great toe with antibiotic. He remained afebrile while in hospital. Cardiology did cardiac cath and he was found with severe mid LAD lesion and he required bare-metal stent placement in his mid LAD. He was started initially on Brilinta, but he was not tolerating that medication and that is why medication was changed to Plavix. This patient has normal EF. We started above-mentioned new medication, all new medication prescription sent to local pharmacy. Overall, the patient is doing much better. He has leukocytosis, but his x-ray is clean and he does not have any fever. PHYSICAL EXAMINATION: VITAL SIGNS: Temperature 97.2, pulse 85, respiratory rate 16, saturation 95%, blood pressure 121/71, weight 184 pounds. GENERAL: The patient is currently alert, awake, no obvious acute distress. HEAD: Normocephalic and atraumatic. Eyes; pupils round, reactive to light. Extraocular muscle intact. ENT: Oropharynx within normal limits. LUNGS: Clear to auscultation without any rhonchi or rales. CARDIAC: S1 and S2 regular without any murmur. ABDOMEN: Soft and benign. EXTREMITIES: No edema. NEUROLOGIC: Nonfocal examination. Overall, the patient is medically stable for discharge. During this admission, we spoke with Oncology and they recommended that this patient has not seen Oncology for about 2 couple of years and they recommended outpatient followup with him. The patient agreed with that plan. Job ID: [id number]
--- NOTE | 2019-01-13 12:55 | EKG ---
Test Reason : ER INDICATION Blood Pressure : / mmHG Vent. Rate : 087 BPM Atrial Rate : 087 BPM P-R Int : 154 ms QRS Dur : 088 ms QT Int : 338 ms P-R-T Axes : 035 021 022 degrees QTc Int : 406 ms Normal sinus rhythm Normal ECG Confirmed by TRAY BASILIO MD ([id number]), commissioning editor SRINIVASAN LY ([id number]) on 01/13/2019 12:54:59 PM Referred By: Confirmed By:TRAY BASILIO MD
[2019-01-13 14:20] VITALS: BP 124/75; TEMP 96.8
--- NOTE | 2019-01-15 16:44 | EKG ---
Test Reason : Blood Pressure : / mmHG Vent. Rate : 072 BPM Atrial Rate : 072 BPM P-R Int : 198 ms QRS Dur : 092 ms QT Int : 378 ms P-R-T Axes : 051 033 029 degrees QTc Int : 413 ms Normal sinus rhythm Normal ECG Confirmed by LOREN PIERCE ([id number]) on 01/15/2019 4:44:27 PM Referred By: SHERLY Confirmed By:LOREN PIERCE
== END 2019-01-13 14:35 | disposition home or self-care (01) | DRG 249 ==
LOC: ERS 13:27 → 2NO 19:05
PROVIDERS: ADMIT Internal Medicine; ATTEND Internal Medicine
PROC: 02703DZ Dilation of Coronary Artery, One Artery with Intraluminal Device, Percutaneous Approach (ICD-10-PCS; principal; 2019-01-10)
PROC: 4A023N7 Measurement of Cardiac Sampling and Pressure, Left Heart, Percutaneous Approach (ICD-10-PCS; 2019-01-10)
PROC: B2111ZZ Fluoroscopy of Multiple Coronary Arteries using Low Osmolar Contrast (ICD-10-PCS; 2019-01-10)
PROC: B2151ZZ Fluoroscopy of Left Heart using Low Osmolar Contrast (ICD-10-PCS; 2019-01-10)
DX: I25.110 Atherosclerotic heart disease of native coronary artery with unstable angina pectoris (principal); I13.0 Hypertensive heart and chronic kidney disease with heart failure and stage 1 through stage 4 chronic kidney disease, or unspecified chronic kidney disease; I50.22 Chronic systolic (congestive) heart failure; E11.22 Type 2 diabetes mellitus with diabetic chronic kidney disease; N18.3 Chronic kidney disease, stage 3 (moderate); M10.9 Gout, unspecified; M06.9 Rheumatoid arthritis, unspecified; R91.8 Other nonspecific abnormal finding of lung field; J44.9 Chronic obstructive pulmonary disease, unspecified; K21.9 Gastro-esophageal reflux disease without esophagitis; E11.51 Type 2 diabetes mellitus with diabetic peripheral angiopathy without gangrene; L03.032 Cellulitis of left toe
CPT/HCPCS: 36415; 71045; 71046; 76942; 80048; 80053; 80061; 82550; 83880; 84443; 84484; 84550; 85025; 85347; 86140; 92928; 93005; 93010; 93458; 93798; 94640; 99152; 99153; C1760; C1769; J1644; J1650; J2001; J2250; J2270; J3010; J7512; J7620; Q9967

== ENCOUNTER 2019-01-29 10:47 | Inpatient (IN) | payer MEDICARE ==
[2019-01-29] MEDS ORDERED: Bisacodyl 5 MG TAB PO PRN (11:00)
[2019-01-29] MEDS ORDERED: Ondansetron ODT 4 MG TAB PO PRN (11:00)
[2019-01-29] MEDS ORDERED: Zolpidem Tartrate 5 MG TAB PO PRN (11:00)
[2019-01-29] MEDS ORDERED: Loperamide HCl 2 MG CAP PO PRN (11:00)
[2019-01-29] MEDS ORDERED: Senokot S 8.6-50 MG TAB PO PRN (11:00)
[2019-01-29 11:09] VITALS: BMI 26.4
[2019-01-29 12:26] LABS: #Basophils 0.1 thou/uL (0.0-0.2); #Eosinphils 0.4 thou/uL (0.0-0.7); #Lymphocytes 3.8 thou/uL (1.20-3.40); %Basophils 0.6 % (0.0-1.0); %Eosinophils 2.4 % (0.0-10.0); %Lymphocytes 23.2 % (21.0-51.0); %Monocytes 6.4 % (0.0-10.0); %Neutrophils 67.4 % (42.0-75.0); Hemoglobin 14.5 g/dL (14.0-18.0); Mean Corpuscular HGB CONC 31.2 g/dL (32.0-36.0); Mean Corpuscular Hemoglobin 26.9 pg (27.0-31.0); Mean Corpuscular Volume 86.3 fL (78.0-98.0); Mean Platelet Volume 7.5 fL (7.4-10.4); Platelet Count 358 thou/uL (130-400); RBC Distribution Width 15.5 % (11.5-14.5); Red Blood Cell (RBC) Count 5.38 mill/uL (4.70-6.10); White Blood Cell (WBC) Count 16.3 thou/uL (4.8-10.8)
[2019-01-29] MEDS ORDERED: HYDROcodone/Acetaminophen 10/325 mg Tablet PO PRN (12:27)
[2019-01-29] MEDS ORDERED: Diazepam 5 MG TAB PO PRN (12:27)
[2019-01-29] MEDS ORDERED: LIDOCAINE TOP PRN (12:27)
[2019-01-29] MEDS ORDERED: PROVENTIL INHALER 6.7 G (200 INHALATIONS) INH PRN (12:27)
[2019-01-29] MEDS: Morphine 2 MG/ML SYRINGE SLOW IVP PRN ×3 (12:34→21:53)
[2019-01-29] MEDS: Heparin 25,000 units/D5W 500 ML IVPB SCH (12:44)
[2019-01-29 12:49] LABS: ALT (SGPT) 11 U/L (8-55); AST (SGOT) 13 U/L (5-34); Albumin 3.7 g/dL (3.5-5.0); Alkaline Phosphatase 89 U/L (40-150); Anion Gap 12 mmol/L (10-20); BUN (Urea Nitrogen) 26 mg/dL (8.4-25.7); Bilirubin, Total 0.4 mg/dL (0.2-1.2); Calc. Creatinine Clearance 50 mL/min (70-130); Calcium 9.4 mg/dL (7.8-10.44); Carbon Dioxide 26 mmol/L (22-29); Chloride 102 mmol/L (98-107); Estimated GFR-MDRD 35; Globulin 3.4 g/dL (2.4-3.5); Glucose 106 mg/dL (70-105); Potassium 5.2 mmol/L (3.5-5.1); Protein, Total 7.1 g/dL (6.0-8.3); Sodium 135 mmol/L (136-145)
[2019-01-29] MEDS: Heparin 10,000 UNITS/ 10 ML VIAL SLOW IVP SCH (12:49)
[2019-01-29] MEDS ORDERED: fentaNYL 100 mcg/hour Patch TD SCH (13:00)
--- NOTE | 2019-01-29 13:00 | HP ---
CHIEF COMPLAINT: Ischemic leg. HISTORY OF PRESENT ILLNESS: Mr. Sinha is a very pleasant 58-year-old white gentleman, who comes to the hospital for ischemic leg. He has been noticing left leg pain for the last 3 months. It got worse 3 weeks ago. He was in the hospital around that same time with chest pain, and he ended up having a heart catheterization that showed a severe LAD lesion. He underwent a bare-metal stenting to this area. His pain has progressively gotten worse, so we took him to the lab, and he had a selective angiography of the bilateral lower extremities today. He was found to have a thrombus in his left common iliac system as well as an occlusive thrombus, which seems to be old at the level of the popliteal artery. He has collaterals formation, and he has 3-vessel reconstituted [id number], and he has two good vessel runoff to the foot. Secondary to this, we brought him to the hospital and admitted him for heparin drip and surgical evaluation. PAST MEDICAL HISTORY: 1. Coronary artery disease, status post bare-metal stent on January 10 of this year. 2. Hypertension. 3. Gout. 4. Rheumatoid arthritis. 5. Lung mass that has yet to be worked up. PAST SURGICAL HISTORY: 1. Low back surgery. 2. Orthopedic surgery in the past. SOCIAL HISTORY: No alcohol, tobacco, or drugs. OUTPATIENT MEDICATIONS: Include, 1. Amlodipine with valsartan 10/320 a day. 2. Diazepam. 3. Albuterol inhaler. 4. Fentanyl patch. 5. Torsemide 40 mg a day. 6. Hydrocodone p.r.n. 7. Lidocaine topical p.r.n. 8. Prednisone 5 mg a day. 9. Tizanidine. 10. Anoro Ellipta. 11. Nexium 40 mg a day. 12. Vitamin D3. ALLERGIES: ANTIDEPRESSANTS. REVIEW OF SYSTEMS: Twelve-point review of systems was done and was all negative unless stated in the history of present illness. PHYSICAL EXAMINATION: VITAL SIGNS: Temperature 98.4, pulse 65, respiratory rate 18, sat 95% on room air, and blood pressure 104/68. GENERAL: Awake, alert, oriented x3. No distress. HEENT: Normocephalic and atraumatic. NECK: Supple. LUNGS: Clear. CARDIOVASCULAR: S1 and S2. No S3 or S4. No murmurs. ABDOMEN: Soft. Positive bowel sounds. EXTREMITIES: No edema. SKIN: Warm and dry. LABORATORY DATA: Laboratory work was reviewed. Pending today. Creatinine was 2.3 this morning before procedure. He was hydrated. ASSESSMENT AND PLAN: 1. Intraarterial thrombus. 2. Ischemic left leg. 3. Thrombus on the left common iliac. 4. Occlusive thrombus at the left popliteal artery. PLAN: 1. Consultation with CT Surgery and Dr. Conn has already been consulted. He has seen the images, and we will await recommendations from his evaluation. 2. We will start on heparin drip to make sure his thrombus does not get any worse. 3. Continue Plavix for now and aspirin. 4. We will restart most of his home medications. 5. DVT prophylaxis with full heparin dose. 6. Stress ulcer prophylaxis with PPI. 7. Disposition, pending clinical evolution. Job ID: [id number]
[2019-01-29] MEDS: Lactated Ringer's 1,000 ML IV SCH (14:16)
[2019-01-29 17:35] LABS: PTT 148.1 SEC (22.9-36.1)
[2019-01-29] MEDS: Carvedilol 3.125 MG TAB PO SCH (17:35)
[2019-01-29] MEDS: tiZANidine HCl 4 MG TAB PO SCH ×2 (20:21→23:47)
[2019-01-29] MEDS: Atorvastatin Calcium 40 MG TAB PO SCH (20:21)
[2019-01-29] MEDS: Sulfameth/Trimethoprim DS 800-160mg TAB PO SCH (20:21)
[2019-01-30] MEDS: Morphine 2 MG/ML SYRINGE SLOW IVP PRN ×2 (02:10→06:17)
[2019-01-30] MEDS: Heparin 10,000 UNITS/ 10 ML VIAL SLOW IVP SCH (03:01)
[2019-01-30 05:22] LABS: Band 1 % (5-11); Eosinophils 6 % (0-10); Hemoglobin 13.2 g/dL (14.0-18.0); Lymphocytes 40 % (21-51); MDiff Complete? YES; Mean Corpuscular HGB CONC 31.5 g/dL (32.0-36.0); Mean Corpuscular Hemoglobin 27.2 pg (27.0-31.0); Mean Corpuscular Volume 86.4 fL (78.0-98.0); Mean Platelet Volume 7.6 fL (7.4-10.4); Monocytes 9 % (0-10); Neutrophil 43 % (42-75); Platelet Count 312 thou/uL (130-400); Platelet Morphology Comment Appears Adequate; RBC Distribution Width 15.5 % (11.5-14.5); Red Blood Cell (RBC) Count 4.84 mill/uL (4.70-6.10); White Blood Cell (WBC) Count 14.2 thou/uL (4.8-10.8)
[2019-01-30 05:26] LABS: Anion Gap 12 mmol/L (10-20); BUN (Urea Nitrogen) 17 mg/dL (8.4-25.7); Calc. Creatinine Clearance 69 mL/min (70-130); Calcium 8.7 mg/dL (7.8-10.44); Carbon Dioxide 23 mmol/L (22-29); Chloride 104 mmol/L (98-107); Estimated GFR-MDRD 50; Glucose 145 mg/dL (70-105); Potassium 3.9 mmol/L (3.5-5.1); Sodium 135 mmol/L (136-145)
[2019-01-30] MEDS: Heparin 25,000 units/D5W 500 ML IVPB SCH (06:43)
[2019-01-30] MEDS ORDERED: Heparin 5,000 UNITS/ML VIAL ONE (06:51)
[2019-01-30] MEDS ORDERED: Iothalamate Meglumine 60% 50 ML VIAL FS ONE (06:51)
[2019-01-30] MEDS ORDERED: Protamine Sulfate 50 MG/5 ML VIAL ONE (06:51)
[2019-01-30] MEDS ORDERED: Fentanyl 100 MCG/2 ML VIAL ONE ×5 (08:11→14:12)
[2019-01-30] MEDS ORDERED: Furosemide 40 MG TAB PO SCH (09:00)
[2019-01-30] MEDS ORDERED: Non-Formulary Item 1 EACH (Amlodipine Besylate/Valsartan [Amlodipine-Valsartan 10-320 Mg] PO SCH (09:00)
[2019-01-30] MEDS ORDERED: Valsartan 80 MG TAB PO SCH (09:00)
[2019-01-30] MEDS ORDERED: Clopidogrel Bisulfate 75 MG TAB PO SCH (09:00)
[2019-01-30] MEDS ORDERED: Amlodipine 10 MG TAB PO SCH (09:00)
[2019-01-30] MEDS ORDERED: Aspirin 81 mg Enteric Coated Tablet PO SCH (09:00)
[2019-01-30] MEDS ORDERED: Famotidine/PF 20 mg/2ml Vial ONE (09:16)
[2019-01-30] MEDS: Carvedilol 3.125 MG TAB PO SCH ×2 (13:06→16:56)
[2019-01-30] MEDS: Sulfameth/Trimethoprim DS 800-160mg TAB PO SCH ×2 (13:07→21:53)
[2019-01-30] MEDS ORDERED: Promethazine HCl 25 MG/ML VIAL SLOW IVP PRN (13:25)
[2019-01-30] MEDS ORDERED: Promethazine HCl 25 MG/ML VIAL IM PRN ×2 (13:25→15:18)
[2019-01-30] MEDS ORDERED: Ondansetron HCl/PF 4 MG/2 ML Vial IVP PRN (13:25)
[2019-01-30] MEDS ORDERED: Acetaminophen 325 MG TAB PO PRN (13:44)
[2019-01-30] MEDS ORDERED: Ondansetron PF 4 MG/2 ML Vial IVP PRN ×2 (13:44→15:18)
[2019-01-30] MEDS ORDERED: Fentanyl 100 MCG/2 ML VIAL SLOW IVP PRN (13:44)
[2019-01-30] MEDS ORDERED: HYDROcodone/Acetaminophen 5/325 mg Tablet PO PRN ×2 (13:44)
[2019-01-30] MEDS ORDERED: CEFAZOLIN 2 GM in Sodium Chloride 0.9% 100 ML IVPB SCH (14:00)
[2019-01-30] MEDS ORDERED: HYDROmorphone 2 MG/ML VIAL ONE (14:22)
[2019-01-30] MEDS: predniSONE 5 MG TAB PO SCH (14:40)
[2019-01-30] MEDS: Clopidogrel Bisulfate 75 MG TAB PO SCH (14:40)
[2019-01-30] MEDS: Aspirin 81 mg Enteric Coated Tablet PO SCH (14:40)
--- NOTE | 2019-01-30 15:09 | PDOC.CTH ---
Cardiology Progress Note - Subjective he had surgery earlier today and is doing better, Sore on his leg. - Objective Vital Signs Temp Pulse Resp BP Pulse Ox 01/30/19 07:50 97.9 F 59 L 16 96/61 93 L 01/30/19 07:21 64 16 95 01/30/19 04:02 98.0 F 68 16 99/67 93 L Weight 195 lb 01/29/19 01/30/19 01/31/19 06:59 06:59 06:59 Intake Total 360 2262 Output Total 650 1550 Balance -290 712 - Physical Examination General/Neuro: alert & oriented x3, NAD Neck: no JVD present Lungs: CTA, unlabored respirations Heart: RRR Abdomen: NT/ND Extremities: other: (no edema) - Telemetry Telemetry Rhythm: NSR - Labs Result Diagrams: 01/30/19 04:42 01/30/19 04:42 - Assessment/Plan 1. Chronic thrombus on left iliac 2. 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 3. S/P Stenting to Iliac to care home thrombs 4. S/P Fem/Pop bypass on left. PLAN: - Continue post op care.
[2019-01-30] MEDS ORDERED: Midazolam HCl 2 mg/2 ml Vial ONE (15:16)
[2019-01-30] MEDS ORDERED: diphenhydrAMINE 50 MG/ML VIAL IM PRN (15:18)
[2019-01-30] MEDS ORDERED: diphenhydrAMINE 50 MG/ML VIAL IVP PRN (15:18)
[2019-01-30] MEDS ORDERED: diphenhydrAMINE 25 MG CAP PO PRN (15:18)
[2019-01-30] MEDS ORDERED: Naloxone HCl 0.4 mg/ml Vial IV PRN (15:18)
[2019-01-30] MEDS ORDERED: Zolpidem Tartrate 5 MG TAB PO PRN (15:18)
[2019-01-30] MEDS ORDERED: PROPOFOL 200 MG/20 ML VIAL ONE (15:20)
[2019-01-30] MEDS ORDERED: Heparin 10,000 UNITS/ 10 ML VIAL ONE (15:20)
[2019-01-30] MEDS ORDERED: Ondansetron PF 4 MG/2 ML Vial ONE (15:20)
[2019-01-30] MEDS ORDERED: Rocuronium Bromide 10 MG/ML (10ML VIAL) ONE (15:20)
[2019-01-30] MEDS ORDERED: Ketorolac Tromethamine 30 MG/ML VIAL ONE (15:20)
[2019-01-30] MEDS ORDERED: Lidocaine 1% PF 5 ML VIAL ONE (15:20)
[2019-01-30] MEDS ORDERED: ePHEDrine 50 MG/ML VIAL ONE (15:20)
[2019-01-30] MEDS ORDERED: Dexamethasone 20 MG/5 ML VIAL ONE (15:20)
[2019-01-30] MEDS ORDERED: Communication Order-Pharmacy FS SCH (15:30)
--- NOTE | 2019-01-30 15:41 | OP ---
DATE OF PROCEDURE: 01/30/2019 PREOPERATIVE DIAGNOSES: 1. Rest pain. 2. Ischemic ulcerations, left foot. PROCEDURES PERFORMED: 1. Left common iliac artery stent with an 8 x 29 Express stent. 2. Left superficial femoral artery to tibioperoneal trunk bypass with endarterectomy of the tibioperoneal trunk, anterior tibial artery orifice, and distal popliteal artery. ANESTHESIA: General. ESTIMATED BLOOD LOSS: 100. FLUOROSCOPY: 2 minutes and 15 seconds. CONTRAST: 12 mL. DESCRIPTION OF PROCEDURE: After adequate anesthesia had been obtained, ultrasound was used to examine the left leg. The incision was carried out as below the knee, exposing the popliteal artery, which was thrombosed as anticipated. Dissection distally revealed calcification in the tibioperoneal trunk and anterior tibial artery. The vessel appeared soft at the takeoff of the peroneal and posterior tibial artery. Saphenous vein was then harvested beginning at this level, but was a rather small vessel until just above the knee, when it became more adequate size. It was harvested proximally to the mid thigh. The patient's left common femoral artery was then exposed. The patient was heparinized. Clamp applied to the distal common femoral artery. Needle and wire inserted under fluoroscopic guidance proximally, and under fluoroscopy, the wire was guided into the aorta. Angiography was obtained and an 8 x 27 stent was then deployed. Sheath was removed and arteriotomy performed at that level and there was no embolic material with flushing. Transverse arteriotomy was closed with a 6-0 Prolene suture, following which the distal superficial femoral artery where it was soft with a pulse was opened and saphenous vein anastomosed in a reversed fashion here and brought through a posterior tunnel behind the knee. The tibioperoneal trunk was then opened and this was extended proximally several times until the popliteal artery was reached. Thrombus was removed from this area and then an endarterectomy was performed of the tibioperoneal trunk, extending proximally into the popliteal artery and including the orifice of the anterior tibial artery, which had weak backbleeding after this and no backbleeding before. The saphenous vein was then anastomosed through a long arteriotomy with a 6-0 Prolene running suture. Prior to completing the suture line, the vessels were backflushed and forward flushed and then flow restored with a good Doppler signal in the posterior tibial artery. The wound was then closed in layers and the patient is to be taken to the recovery room in guarded condition. Job ID: [id number]
[2019-01-30] MEDS: Lactated Ringer's 1,000 ML IV SCH (16:39)
[2019-01-30] MEDS: CEFAZOLIN 2 GM, IV Admixture Fee-Chemo 1 UNITS in Sodium Chloride 0.9% 100 ML IVPB SCH (17:54)
[2019-01-30] MEDS: tiZANidine HCl 4 MG TAB PO SCH (21:53)
[2019-01-30] MEDS: Atorvastatin Calcium 40 MG TAB PO SCH (21:53)
[2019-01-31] MEDS: CEFAZOLIN 2 GM, IV Admixture Fee-Chemo 1 UNITS in Sodium Chloride 0.9% 100 ML IVPB SCH ×2 (01:05→11:11)
[2019-01-31] MEDS: Lactated Ringer's 1,000 ML IV SCH (09:15)
[2019-01-31] MEDS: Carvedilol 3.125 MG TAB PO SCH ×2 (09:15→16:51)
[2019-01-31] MEDS: Aspirin 81 mg Enteric Coated Tablet PO SCH (09:16)
[2019-01-31] MEDS: Clopidogrel Bisulfate 75 MG TAB PO SCH (09:16)
[2019-01-31] MEDS: Sulfameth/Trimethoprim DS 800-160mg TAB PO SCH ×2 (09:16→20:46)
[2019-01-31] MEDS: predniSONE 5 MG TAB PO SCH (09:16)
[2019-01-31 10:45] LABS: Hemoglobin 12.7 g/dL (14.0-18.0); Mean Corpuscular HGB CONC 31.8 g/dL (32.0-36.0); Mean Corpuscular Volume 84.9 fL (78.0-98.0); Mean Platelet Volume 7.9 fL (7.4-10.4); Platelet Count 281 thou/uL (130-400); RBC Distribution Width 15.9 % (11.5-14.5); Red Blood Cell (RBC) Count 4.71 mill/uL (4.70-6.10); White Blood Cell (WBC) Count 20.3 thou/uL (4.8-10.8)
[2019-01-31 11:04] LABS: Anion Gap 12 mmol/L (10-20); BUN (Urea Nitrogen) 12 mg/dL (8.4-25.7); Calc. Creatinine Clearance 87 mL/min (70-130); Calcium 9.1 mg/dL (7.8-10.44); Carbon Dioxide 23 mmol/L (22-29); Chloride 104 mmol/L (98-107); Estimated GFR-MDRD 65; Glucose 124 mg/dL (70-105); Potassium 4.8 mmol/L (3.5-5.1); Sodium 134 mmol/L (136-145)
[2019-01-31] MEDS: Acetaminophen 500 MG TAB PO SCH ×2 (11:11→17:05)
[2019-01-31 11:12] LABS: Band 1 % (5-11); Lymphocytes 14 % (21-51); MDiff Complete? YES; Monocytes 6 % (0-10); Neutrophil 76 % (42-75); RBC Morphology Normal; Reactive Lymphocytes 3 % (0-10)
[2019-01-31] MEDS: fentaNYL Citrate/PF 2,000 MCG in Sodium Chloride 0.9% 60 ML IV PRN (12:27)
--- NOTE | 2019-01-31 12:47 | PDOC.CTH ---
Cardiology Progress Note - Subjective He is doing better. His pain is much better controlled. No new issues. - Objective Vital Signs Temp Pulse Resp BP Pulse Ox 01/31/19 11:28 99.1 F 66 16 122/67 96 01/31/19 08:30 92 L 01/31/19 06:47 69 18 92 L 01/31/19 04:00 98.1 F 82 16 102/63 93 L 01/31/19 01:32 93 L Weight 195 lb 01/30/19 01/31/19 02/01/19 06:59 06:59 06:59 Intake Total 360 4422 Output Total 650 2800 Balance -290 1622 - Physical Examination General/Neuro: alert & oriented x3, NAD Neck: no JVD present Lungs: CTA, unlabored respirations Heart: RRR Abdomen: NT/ND Extremities: other: (no edema) - Labs Result Diagrams: 01/31/19 10:05 01/31/19 10:05 - Assessment/Plan 1. Chronic thrombus on left iliac 2. 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 3. S/P Stenting to Iliac to mcc thrombus 4. S/P Fem/Pop bypass on left. PLAN: - Pain control. - Left leg better perfused.
[2019-01-31] MEDS ORDERED: Milk Of Magnesia 30 ML UDCUP PO PRN (16:16)
[2019-01-31] MEDS ORDERED: Enoxaparin Sodium 40 MG/0.4 ML SYRINGE SC SCH (19:00)
[2019-01-31] MEDS: Atorvastatin Calcium 40 MG TAB PO SCH (20:46)
[2019-01-31] MEDS: tiZANidine HCl 4 MG TAB PO SCH (20:46)
[2019-01-31] MEDS ORDERED: fentaNYL 100 mcg/hour Patch TD SCH (21:00)
[2019-02-01] MEDS: Acetaminophen 500 MG TAB PO SCH ×5 (01:45→23:45)
[2019-02-01] MEDS: Lactated Ringer's 1,000 ML IV SCH (05:06)
[2019-02-01] MEDS: fentaNYL Citrate/PF 2,000 MCG in Sodium Chloride 0.9% 60 ML IV PRN (05:16)
[2019-02-01 05:33] LABS: #Basophils 0.1 thou/uL (0.0-0.2); #Eosinphils 0.5 thou/uL (0.0-0.7); #Lymphocytes 4.5 thou/uL (1.20-3.40); #Monocytes 1.4 thou/uL (0.11-0.59); #Neutrophils 9.2 thou/uL (1.40-6.50); %Basophils 0.7 % (0.0-1.0); %Eosinophils 3.1 % (0.0-10.0); %Lymphocytes 28.7 % (21.0-51.0); %Monocytes 9.2 % (0.0-10.0); %Neutrophils 58.3 % (42.0-75.0); Hemoglobin 12.1 g/dL (14.0-18.0); Mean Corpuscular HGB CONC 32.2 g/dL (32.0-36.0); Mean Corpuscular Hemoglobin 27.6 pg (27.0-31.0); Mean Corpuscular Volume 85.6 fL (78.0-98.0); Mean Platelet Volume 7.4 fL (7.4-10.4); Platelet Count 267 thou/uL (130-400); RBC Distribution Width 15.8 % (11.5-14.5); Red Blood Cell (RBC) Count 4.38 mill/uL (4.70-6.10); White Blood Cell (WBC) Count 15.7 thou/uL (4.8-10.8)
[2019-02-01 05:51] LABS: Anion Gap 8 mmol/L (10-20); BUN (Urea Nitrogen) 12 mg/dL (8.4-25.7); Calc. Creatinine Clearance 91 mL/min (70-130); Calcium 9.2 mg/dL (7.8-10.44); Carbon Dioxide 27 mmol/L (22-29); Chloride 104 mmol/L (98-107); Estimated GFR-MDRD 69; Glucose 135 mg/dL (70-105); Potassium 4.6 mmol/L (3.5-5.1); Sodium 134 mmol/L (136-145)
[2019-02-01] MEDS: Carvedilol 3.125 MG TAB PO SCH ×2 (07:49→17:06)
--- NOTE | 2019-02-01 08:27 | PDOC.CTH ---
Cardiology Progress Note - Subjective Pain better controlled. Working with PT. - Objective Vital Signs Temp Pulse Resp BP Pulse Ox 02/01/19 07:45 97.7 F 60 16 127/77 97 02/01/19 06:34 74 16 97 02/01/19 04:26 98.1 F 63 16 113/69 95 02/01/19 00:25 98.5 F 65 16 95/59 L 95 01/31/19 23:30 68 16 96 01/31/19 20:36 98.3 F 71 16 134/75 96 Weight 195 lb 01/31/19 02/01/19 02/02/19 06:59 06:59 06:59 Intake Total 4422 3030 Output Total 2800 3590 Balance 1622 -560 - Physical Examination General/Neuro: alert & oriented x3, NAD Neck: no JVD present Lungs: CTA, unlabored respirations Heart: RRR Abdomen: NT/ND Extremities: other: (no edema) - Labs Result Diagrams: 02/01/19 05:04 02/01/19 05:04 - Assessment/Plan 1. Chronic thrombus on left iliac 2. 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 3. S/P Stenting to Iliac to shelter thrombus 4. S/P Fem/Pop bypass on left. PLAN: - Pain better controlled. - PT recommends home with home health versus inpatient PT. - Will have him screened for inpatient rehab. - Dispo pending rehab screen.
[2019-02-01] MEDS: Aspirin 81 mg Enteric Coated Tablet PO SCH (09:30)
[2019-02-01] MEDS: Sulfameth/Trimethoprim DS 800-160mg TAB PO SCH ×2 (09:31→20:33)
[2019-02-01] MEDS: predniSONE 5 MG TAB PO SCH (09:31)
[2019-02-01] MEDS: Enoxaparin Sodium 40 MG/0.4 ML SYRINGE SC SCH (09:31)
[2019-02-01] MEDS: Clopidogrel Bisulfate 75 MG TAB PO SCH (09:31)
[2019-02-01] MEDS ORDERED: HYDROcodone/Acetaminophen 10/325 mg Tablet PO PRN (12:14)
[2019-02-01] MEDS: fentaNYL 75 mcg/hour Patch TD SCH (14:53)
[2019-02-01] MEDS: HYDROcodone/Acetaminophen 10/325 mg Tablet PO PRN ×2 (14:59→23:04)
[2019-02-01] MEDS: Atorvastatin Calcium 40 MG TAB PO SCH (20:33)
[2019-02-01] MEDS: tiZANidine HCl 4 MG TAB PO SCH (20:33)
[2019-02-02] MEDS: Lactated Ringer's 1,000 ML IV SCH ×2 (01:13→12:39)
[2019-02-02] MEDS: HYDROcodone/Acetaminophen 10/325 mg Tablet PO PRN ×5 (06:53→23:26)
[2019-02-02] MEDS: Acetaminophen 500 MG TAB PO SCH (06:56)
[2019-02-02] MEDS: Clopidogrel Bisulfate 75 MG TAB PO SCH (09:35)
[2019-02-02] MEDS: predniSONE 5 MG TAB PO SCH (09:35)
[2019-02-02] MEDS: Aspirin 81 mg Enteric Coated Tablet PO SCH (09:35)
[2019-02-02] MEDS: Carvedilol 3.125 MG TAB PO SCH ×2 (09:36→16:17)
[2019-02-02] MEDS: Sulfameth/Trimethoprim DS 800-160mg TAB PO SCH ×2 (09:36→20:26)
[2019-02-02] MEDS: Enoxaparin Sodium 40 MG/0.4 ML SYRINGE SC SCH (09:36)
[2019-02-02] MEDS ORDERED: HYDROcodone/Acetaminophen 10/325 mg Tablet PO PRN (09:39)
[2019-02-02] MEDS: Fentanyl 100 MCG/2 ML VIAL SLOW IVP PRN ×3 (12:36→20:59)
--- NOTE | 2019-02-02 15:41 | PDOC.CTH ---
Cardiology Progress Note - Subjective No new issues. Pain better controlled. - Objective Vital Signs Temp Pulse Resp BP BP Pulse Ox 02/02/19 15:26 98.7 F 89 20 111/72 94 L 02/02/19 13:17 66 16 96 02/02/19 11:21 118/76 02/02/19 10:51 98.3 F 73 14 92/44 L 94 L 02/02/19 08:00 96 02/02/19 07:52 69 16 96 02/02/19 07:36 98.1 F 62 18 131/76 96 Weight 195 lb 02/01/19 02/02/19 02/03/19 06:59 06:59 06:59 Intake Total 3030 3220 450 Output Total 3590 900 Balance -560 2320 450 - Physical Examination General/Neuro: alert & oriented x3, NAD Neck: no JVD present Lungs: CTA, unlabored respirations Heart: RRR Abdomen: NT/ND Extremities: other: (no edema) - Labs Result Diagrams: 02/01/19 05:04 02/01/19 05:04 - Assessment/Plan 1. Chronic thrombus on left iliac 2. 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 3. S/P Stenting to Iliac to care home thrombus 4. S/P Fem/Pop bypass on left. PLAN: - Pain better controlled. - To inpatient rehab when bed available.
[2019-02-02] MEDS: tiZANidine HCl 4 MG TAB PO SCH (20:26)
[2019-02-02] MEDS: Atorvastatin Calcium 40 MG TAB PO SCH (20:26)
[2019-02-03] MEDS: HYDROcodone/Acetaminophen 10/325 mg Tablet PO PRN ×5 (03:18→21:07)
[2019-02-03] MEDS: Fentanyl 100 MCG/2 ML VIAL SLOW IVP PRN ×3 (05:15→15:12)
[2019-02-03] MEDS: Clopidogrel Bisulfate 75 MG TAB PO SCH (08:25)
[2019-02-03] MEDS: Aspirin 81 mg Enteric Coated Tablet PO SCH (08:25)
[2019-02-03] MEDS: Sulfameth/Trimethoprim DS 800-160mg TAB PO SCH ×2 (08:26→20:02)
[2019-02-03] MEDS: predniSONE 5 MG TAB PO SCH (08:26)
[2019-02-03] MEDS: Enoxaparin Sodium 40 MG/0.4 ML SYRINGE SC SCH (08:27)
[2019-02-03] MEDS: Carvedilol 3.125 MG TAB PO SCH ×2 (08:27→18:25)
[2019-02-03] MEDS: Lactated Ringer's 1,000 ML IV SCH (08:27)
[2019-02-03] MEDS ORDERED: Diazepam 5 MG TAB PO SCH (10:00)
[2019-02-03] MEDS: Atorvastatin Calcium 40 MG TAB PO SCH (20:02)
[2019-02-03] MEDS: tiZANidine HCl 4 MG TAB PO SCH (20:02)
[2019-02-03] MEDS: Diazepam 5 MG TAB PO SCH (20:02)
[2019-02-04] MEDS: HYDROcodone/Acetaminophen 10/325 mg Tablet PO PRN ×5 (02:06→20:45)
[2019-02-04] MEDS: Carvedilol 3.125 MG TAB PO SCH ×2 (08:52→16:43)
[2019-02-04] MEDS: Aspirin 81 mg Enteric Coated Tablet PO SCH (08:52)
[2019-02-04] MEDS: Sulfameth/Trimethoprim DS 800-160mg TAB PO SCH ×2 (08:53→20:13)
[2019-02-04] MEDS: Clopidogrel Bisulfate 75 MG TAB PO SCH (08:53)
[2019-02-04] MEDS: Enoxaparin Sodium 40 MG/0.4 ML SYRINGE SC SCH (08:53)
[2019-02-04] MEDS: predniSONE 5 MG TAB PO SCH (08:53)
[2019-02-04] MEDS: Diazepam 5 MG TAB PO SCH ×2 (08:53→20:13)
[2019-02-04] MEDS: fentaNYL 75 mcg/hour Patch TD SCH (11:44)
[2019-02-04] MEDS: Lactated Ringer's 1,000 ML IV SCH ×2 (15:55→20:44)
[2019-02-04] MEDS: Atorvastatin Calcium 40 MG TAB PO SCH (20:12)
[2019-02-04] MEDS: tiZANidine HCl 4 MG TAB PO SCH (20:13)
[2019-02-05] MEDS: HYDROcodone/Acetaminophen 10/325 mg Tablet PO PRN ×2 (01:45→07:26)
[2019-02-05] MEDS: Carvedilol 3.125 MG TAB PO SCH (07:28)
[2019-02-05] MEDS: Diazepam 5 MG TAB PO SCH (07:28)
[2019-02-05] MEDS: predniSONE 5 MG TAB PO SCH (07:29)
[2019-02-05] MEDS: Aspirin 81 mg Enteric Coated Tablet PO SCH (07:29)
[2019-02-05] MEDS: Sulfameth/Trimethoprim DS 800-160mg TAB PO SCH (07:29)
[2019-02-05] MEDS: Clopidogrel Bisulfate 75 MG TAB PO SCH (07:29)
[2019-02-05] MEDS: Enoxaparin Sodium 40 MG/0.4 ML SYRINGE SC SCH (07:30)
[2019-02-05 11:51] VITALS: BP 104/72; TEMP 98.2
--- NOTE | 2019-02-05 11:55 | DIS ---
DATE OF ADMISSION: 01/29/2019 DATE OF DISCHARGE: 02/05/2019 DISCHARGING PHYSICIAN: Matthew Orellana MD. PRIMARY DIAGNOSIS: Ischemic left leg. PROCEDURES PERFORMED: 1. Left common iliac artery stent. 2. Left superficial femoral artery to tibioperoneal trunk bypass with endarterectomy of the tibioperoneal trunk, anterior tibial artery orifice and distal popliteal artery. SUMMARY: Mr. Sinha is a pleasant 58-year-old white gentleman, who was in the hospital for an ischemic left leg. He had an outpatient AFRO done and he was found to have a thrombus in the common iliac on the left as well as a thrombus occlusive at the level of the popliteal artery. He was admitted for this and underwent said procedure above. He did well. The wound is healing well. He has worked with PT, and they have recommended that he is able to go home as he is much more active now. They will recommend he get a walker for home as this has helped him quite a bit during the stay. DISCHARGE MEDICATIONS: Unchanged from admission medications. FOLLOWUP APPOINTMENTS: 1. With myself in [address] Conn as scheduled. Over 30 minutes were spent at bedside counseling for discharge. Job ID: [id number] MTDD
== END 2019-02-05 13:20 | disposition home or self-care (01) | DRG 253 ==
LOC: SJJU 10:47
PROVIDERS: ADMIT Internal Medicine Cardiovascular Disease; ATTEND Internal Medicine Cardiovascular Disease
PROC: 041L09L Bypass Left Femoral Artery to Popliteal Artery with Autologous Venous Tissue, Open Approach (ICD-10-PCS; principal; 2019-01-31)
PROC: 06BQ0ZZ Excision of Left Saphenous Vein, Open Approach (ICD-10-PCS; 2019-01-31)
PROC: 047D0DZ Dilation of Left Common Iliac Artery with Intraluminal Device, Open Approach (ICD-10-PCS; 2019-01-31)
DX: I74.5 Embolism and thrombosis of iliac artery (principal); I74.3 Embolism and thrombosis of arteries of the lower extremities; I25.10 Atherosclerotic heart disease of native coronary artery without angina pectoris; M10.9 Gout, unspecified; M06.9 Rheumatoid arthritis, unspecified; I10 Essential (primary) hypertension; R91.8 Other nonspecific abnormal finding of lung field; Z95.5 Presence of coronary angioplasty implant and graft; Z79.52 Long term (current) use of systemic steroids; Z79.899 Other long term (current) drug therapy
CPT/HCPCS: 36415; 76000; 80048; 80053; 85007; 85025; 85027; 85730; 86850; 86900; 86901; 94640; C1876; J0690; J1100; J1170; J1644; J1650; J1885; J2001; J2250; J2270; J2405; J2704; J2720; J3010; J3490; J7512; J7620; S0028

== ENCOUNTER 2019-08-31 06:17 | Inpatient (IN) | payer MEDICARE ==
[2019-08-31 07:12] LABS: #Basophils 0.2 thou/uL (0.0-0.2); #Eosinphils 1.1 thou/uL (0.0-0.7); #Lymphocytes 3.7 thou/uL (1.20-3.40); #Monocytes 2.1 thou/uL (0.11-0.59); #Neutrophils 9.5 thou/uL (1.40-6.50); %Basophils 0.9 % (0.0-1.0); %Eosinophils 6.7 % (0.0-10.0); %Lymphocytes 22.5 % (21.0-51.0); %Monocytes 12.4 % (0.0-10.0); %Neutrophils 57.4 % (42.0-75.0); Hemoglobin 12.8 g/dL (14.0-18.0); Mean Corpuscular HGB CONC 32.3 g/dL (32.0-36.0); Mean Corpuscular Hemoglobin 27.3 pg (27.0-31.0); Mean Corpuscular Volume 84.7 fL (78.0-98.0); Platelet Count 310 thou/uL (130-400); Red Blood Cell (RBC) Count 4.69 mill/uL (4.70-6.10); White Blood Cell (WBC) Count 16.6 thou/uL (4.8-10.8)
[2019-08-31 07:41] LABS: ALT (SGPT) 7 U/L (8-55); AST (SGOT) 11 U/L (5-34); Albumin 3.2 g/dL (3.5-5.0); Alkaline Phosphatase 115 U/L (40-110); Anion Gap 16 mmol/L (10-20); BUN (Urea Nitrogen) 16 mg/dL (8.4-25.7); Bilirubin, Total 0.4 mg/dL (0.2-1.2); Calc. Creatinine Clearance 0 mL/min (70-130); Calcium 8.6 mg/dL (7.8-10.44); Carbon Dioxide 26 mmol/L (22-29); Chloride 98 mmol/L (98-107); Estimated GFR-MDRD 47; Globulin 2.8 g/dL (2.4-3.5); Glucose 101 mg/dL (70-105); Lipase 4 U/L (8-78); Potassium 3.9 mmol/L (3.5-5.1); Sodium 136 mmol/L (136-145)
[2019-08-31] MEDS ORDERED: cefTRIAXone\\ROCEPHIN 2 GM VIAL ONE (07:45)
[2019-08-31 07:57] LABS: CKMB 0.9 ng/mL (0-6.6)
[2019-08-31] MEDS ORDERED: Ondansetron ODT 4 MG TAB SL PRN (08:00)
[2019-08-31] MEDS ORDERED: Ondansetron PF 4 MG/2 ML Vial IVP PRN (08:00)
--- NOTE | 2019-08-31 08:31 | RAD ---
CHEST 1 VIEW: Date: 08/31/2019 INDICATION: Shortness of breath and hemoptysis. COMPARISON: Prior exam dated 01/13/2019. FINDINGS: The patient is slightly rotated to the right, limiting the evaluation. Definite consolidation is evid ent. No pleural effusion or pneumothorax is evident. No acute osseous abnormality is evident. IMPRESSION: Slight rotation to the examination limits image detail. No definite acute consolidation, pleural effu juan m, or pneumothorax is evident. POS: BH
--- NOTE | 2019-08-31 08:38 | CT ---
CT PULMONARY ANGIOGRAM WITH IV CONTRAST AND 3D POSTPROCESSING: Date: 08/31/2019 HISTORY: Chest pain. Shortness of breath. FINDINGS: There is good contrast opacification of the pulmonary arterial vasculature without filling defects to suggest pulmonary embolism. The thoracic aorta is well opacified without aneurysm or dissection. A s mall right pleural effusion is present. No left pleural effusion or pericardial effusion is seen. No pneumothoraces identified. There are bilateral infiltrates, right greater than left, with reticulonodular appearance. Upper abdominal tomograms demonstrate a distended gallbladder. There are degenerative changes in the spine. IMPRESSION: 1. No evidence of pulmonary embolism. 2. Findings are suspicious for pneumonia. POS: OFF
[2019-08-31] MEDS ORDERED: Azithromycin 500 MG VIAL ONE (09:03)
[2019-08-31] MEDS ORDERED: Iopamidol 370 76% 100 ML VIAL ONE (10:00)
[2019-08-31] MEDS ORDERED: Morphine 4 MG/ML VIAL ONE (10:01)
[2019-08-31 10:24] LABS: Bilirubin Negative (Negative); Blood, Urine Negative (Negative); Clarity Clear (Clear); Glucose, Urine (Dipstick) Normal (Negative); Leukocyte Negative Leu/uL (Negative); Nitrite Negative (Negative); Protein, Urine (Dipstick) Negative (Neg-Trace); Urobilinogen Normal mg/dL (Less than 2)
[2019-08-31 11:22] VITALS: BMI 26.7
[2019-08-31] MEDS ORDERED: Acetaminophen 650 MG Suppository PR PRN (12:52)
[2019-08-31] MEDS ORDERED: Acetaminophen 325 MG TAB PO PRN (12:52)
[2019-08-31] MEDS ORDERED: Bisacodyl 5 MG TAB PO PRN (12:52)
[2019-08-31] MEDS ORDERED: PROVENTIL INHALER 6.7 G (200 INHALATIONS) INH PRN (12:58)
[2019-08-31] MEDS: Morphine 2 MG/ML SYRINGE SLOW IVP PRN ×2 (12:58→17:22)
[2019-08-31] MEDS ORDERED: PATIENT'S HOME MEDICATION TOP PRN (13:30)
[2019-08-31] MEDS: Sodium Chloride 0.9% 1,000 ML IV SCH (14:55)
--- NOTE | 2019-08-31 15:03 | HP ---
PRIMARY CARE PROVIDER: Dr. Kelly Landers. CHIEF COMPLAINT: Cough and chest pain. HISTORY OF PRESENT ILLNESS: Mr. Sinha is a pleasant 59-year-old gentleman, who was seen at [facility] on August 31, 2019. He reports that over the last one week he has had cough. He reports that the cough is productive of minimal amount of sputum. He started levofloxacin, but it did not help. He also reports pleuritic chest pain across the front and upper back. He reports feeling warm, but did not check his temperature. He reports having body aches. He reports having nausea, vomiting, and diarrhea for 1 day three days ago. He denies any recent travel. He reports small volume hemoptysis today morning. He reports feeling shortness of breath. He also reports feeling generalized weakness. He reports that he is eating and drinking well. REVIEW OF SYSTEMS: All systems were reviewed and found to be negative except for the pertinent positives mentioned above. PAST MEDICAL HISTORY: Hypertension, gout, rheumatoid arthritis, ischemic limb, and lung cancer. PAST SURGICAL HISTORY: Lower back surgery, coronary artery bypass graft x2, PCI with coronary stents, left common iliac artery stent, and left superficial femoral artery to tibioperoneal trunk bypass. FAMILY HISTORY: Myocardial infarction in his father. SOCIAL HISTORY: The patient denies tobacco use, alcohol use, or recreational drug use. ALLERGIES: NO KNOWN DRUG ALLERGIES. CURRENT MEDICATIONS: 1. Albuterol p.r.n. 2. [place] p.r.n. 3. Amlodipine/valsartan 10/320 mg daily. 4. Vitamin D3 10,000 units daily. 5. Diazepam 5 mg 3 times a day as needed. 6. Nexium 40 mg daily. 7. Fentanyl 100 mcg patch every other day. 8. Furosemide 40 mg daily. 9. Levofloxacin 500 mg daily. 10. Lidocaine p.r.n. 11. Prednisone 5 mg daily. 12. Xarelto 2.5 mg 2 times a day. 13. Tizanidine 4 mg at bedtime. 14. Aspirin 81 mg daily. 15. Coreg 3.125 mg 2 times a day. 16. Plavix 75 mg daily. PHYSICAL EXAMINATION: GENERAL: On examination, Mr. Sinha is awake and alert, not in acute distress. VITAL SIGNS: Blood pressure is 146/79, pulse 71, respiratory rate 17, and oxygen saturation 95% on 2 L of oxygen. He is afebrile. EYES: No scleral icterus. No conjunctival pallor. ENT: Dry mucosal membranes. No oropharyngeal erythema or exudates. NECK: Supple and nontender. Trachea is midline. RESPIRATORY: Accessory muscles of breathing are not active. Chest wall movements are symmetric bilaterally. He has diffuse expiratory wheeze. ABDOMEN: Soft and nontender. Bowel sounds are heard. NEUROLOGIC: Cranial nerves 2 through 12 are intact. MUSCULOSKELETAL: Power is 5/5 in all 4 extremities. SKIN: No rashes. LYMPHATIC: No cervical lymphadenopathy. PSYCHIATRIC: Normal mood. Normal affect. The patient is oriented to person, place, and time. LABORATORY DATA: Mr. Sinha's labs and investigations were reviewed. I reviewed his electrocardiogram, which shows normal sinus rhythm, no ST changes to suggest an acute coronary syndrome. I also reviewed his chest x-ray, which does not show any pulmonary infiltrates. He had CT angiogram of the chest, which did not show any evidence of pulmonary embolism, but finding suspicious for pneumonia. He has leukocytosis with 16,600 white cells, of which of 7.4% are neutrophils. He has normocytic anemia with hemoglobin 12.8, and normal platelet count. D-dimer is elevated at 2.5. Creatinine is elevated at 1.53. It was 1.09 on February 01, 2019. Alkaline phosphatase is elevated at 115, LFTs are otherwise unremarkable. Troponin I is less than 0.010. BNP is normal. Lactic acid is normal. Urinalysis is negative for nitrite and leukocyte esterase. Influenza screen is negative. ASSESSMENT AND PLAN: Mr. Sinha is a pleasant 59-year-old gentleman, who was seen at [facility] on August 23, 2019. His problem list includes: 1. Community-acquired pneumonia: Mr. Sinha is presenting with community-acquired pneumonia, most likely secondary to gram-negative rods. He has been started on ceftriaxone and azithromycin, which I will continue. He has failed outpatient therapy with levofloxacin. Further management depending on the clinical outcome. 2. Acute kidney injury: Hold valsartan, provide gentle hydration and recheck creatinine. 3. Coronary artery disease: Stable. Troponin is normal. 4. Peripheral vascular disease: Continue aspirin, Plavix, and rivaroxaban. 5. Hypertension: Monitor vital signs, titrate antihypertensives as needed. Many thanks for allowing me to participate in your patient's care. Please feel free to contact me with any questions or concerns. LEVEL OF RISK: High. LEVEL OF COMPLEXITY: High. Job ID: [id number]
[2019-08-31] MEDS: Carvedilol 3.125 MG TAB PO SCH (17:23)
[2019-08-31] MEDS: Rivaroxaban 2.5 MG TAB PO SCH (17:34)
[2019-08-31] MEDS: tiZANidine HCl 4 MG TAB PO SCH (22:28)
[2019-09-01] MEDS: Morphine 2 MG/ML SYRINGE SLOW IVP PRN ×3 (00:12→11:07)
[2019-09-01] MEDS: tiZANidine HCl 4 MG TAB PO SCH ×2 (00:14→19:40)
[2019-09-01] MEDS: Sodium Chloride 0.9% 1,000 ML IV SCH (04:15)
[2019-09-01 06:36] LABS: #Basophils 0.1 thou/uL (0.0-0.2); #Eosinphils 1.3 thou/uL (0.0-0.7); #Lymphocytes 3.8 thou/uL (1.20-3.40); #Monocytes 1.4 thou/uL (0.11-0.59); #Neutrophils 5.4 thou/uL (1.40-6.50); %Basophils 0.8 % (0.0-1.0); %Eosinophils 10.9 % (0.0-10.0); %Lymphocytes 31.5 % (21.0-51.0); %Monocytes 11.6 % (0.0-10.0); %Neutrophils 45.3 % (42.0-75.0); Hemoglobin 12.2 g/dL (14.0-18.0); Mean Corpuscular HGB CONC 33.1 g/dL (32.0-36.0); Mean Corpuscular Hemoglobin 28.3 pg (27.0-31.0); Mean Corpuscular Volume 85.4 fL (78.0-98.0); Mean Platelet Volume 7.8 fL (7.4-10.4); Platelet Count 296 thou/uL (130-400); RBC Distribution Width 15.1 % (11.5-14.5); White Blood Cell (WBC) Count 11.9 thou/uL (4.8-10.8)
[2019-09-01 06:42] LABS: Anion Gap 13 mmol/L (10-20); BUN (Urea Nitrogen) 13 mg/dL (8.4-25.7); Calc. Creatinine Clearance 94 mL/min (70-130); Calcium 9.2 mg/dL (7.8-10.44); Carbon Dioxide 24 mmol/L (22-29); Chloride 102 mmol/L (98-107); Estimated GFR-MDRD 71; Glucose 65 mg/dL (70-105); Potassium 4.3 mmol/L (3.5-5.1); Sodium 135 mmol/L (136-145)
[2019-09-01] MEDS ORDERED: Non-Formulary Item 1 EACH (Amlodipine Besylate/Valsartan [Amlodipine-Valsartan 10-320 Mg] PO SCH (09:00)
[2019-09-01] MEDS ORDERED: Valsartan 80 MG TAB PO SCH (09:00)
[2019-09-01] MEDS: Rivaroxaban 2.5 MG TAB PO SCH ×2 (09:04→17:05)
[2019-09-01] MEDS: Aspirin 81 mg Enteric Coated Tablet PO SCH (09:05)
[2019-09-01] MEDS: Clopidogrel Bisulfate 75 MG TAB PO SCH (09:05)
[2019-09-01] MEDS: Amlodipine 10 MG TAB PO SCH (09:05)
[2019-09-01] MEDS: Carvedilol 3.125 MG TAB PO SCH ×2 (09:06→17:04)
[2019-09-01] MEDS: cefTRIAXone\\ROCEPHIN 1 GM in Sodium Chloride 0.9% 100 ML IVPB SCH (09:07)
[2019-09-01] MEDS: fentaNYL 100 mcg/hour Patch TD SCH (09:27)
[2019-09-01] MEDS: Azithromycin 500 MG in Sodium Chloride 0.9% 250 ML 250 ML IVPB SCH (10:49)
--- NOTE | 2019-09-01 13:29 | PDOC.HOSPP ---
- Subjective Encounter Date: 09/01/19 Encounter Time: 10:30 Subjective: c/o generalized body aches, pleuritic chest pain no sob - Objective Vital Signs & Weight: Vital Signs (12 hours) Temp Pulse Resp BP BP Pulse Ox 09/01/19 13:02 61 16 96 09/01/19 11:24 98.7 F 77 18 120/69 92 L 09/01/19 09:06 92 L 09/01/19 09:05 64 129/69 09/01/19 07:56 98.2 F 64 18 129/69 92 L 09/01/19 06:57 65 16 95 09/01/19 04:00 98.8 F 64 18 125/76 94 L Weight Weight 197 lb 4 oz I&O: 08/31/19 09/01/19 09/02/19 06:59 06:59 06:59 Intake Total 820 Output Total 1100 Balance -280 Result Diagrams: 09/01/19 05:43 09/01/19 05:43 Hospitalist ROS - Medication Medications: Active Medications Generic Name Dose Route Start Last Admin Trade Name Chepe PRN Reason Stop Dose Admin Albuterol/Ipratropium 3 ml 08/31/19 19:00 09/01/19 13:02 Duoneb NEB 3 ml [id number] KELLEY Administration Amlodipine Besylate 10 mg 09/01/19 09:00 09/01/19 09:05 Norvasc PO 10 mg DAILY KELLEY Administration Aspirin 81 mg 09/01/19 09:00 09/01/19 09:05 Ecotrin PO 81 mg DAILY KELLEY Administration Carvedilol 3.125 mg 08/31/19 17:00 09/01/19 09:06 Coreg PO 3.125 mg BID-WM KELLEY Administration Cholecalciferol 10,000 units 09/01/19 09:00 09/01/19 09:03 Vitamin D3 PO 10,000 units DAILY KELLEY Administration Clopidogrel Bisulfate 75 mg 09/01/19 09:00 09/01/19 09:05 Plavix PO 75 mg DAILY KELLEY Administration Fentanyl 100 mcg 09/01/19 08:00 09/01/19 09:27 Duragesic TD 100 mcg Q2DAYS KELLEY Administration Azithromycin 500 mg/ Sodium 250 mls @ 250 mls/hr 09/01/19 09:00 09/01/19 10: 49 Chloride IVPB 250 mls 0900 KELLEY Administration Ceftriaxone Sodium 1 gm/ 100 mls @ 200 mls/hr 09/01/19 08:00 09/01/19 09:07 Sodium Chloride IVPB 100 mls 0800 KELLEY Administration Morphine Sulfate 2 mg 08/31/19 12:51 09/01/19 11:07 Morphine SLOW IVP 2 mg Q4H PRN Administration Pain Pantoprazole Sodium 40 mg 09/01/19 09:00 09/01/19 09:05 Protonix PO 40 mg DAILY KELLEY Administration Rivaroxaban 2.5 mg 08/31/19 17:00 09/01/19 09:04 Xarelto PO 2.5 mg BID-WM KELLEY Administration Tizanidine HCl 4 mg 08/31/19 21:00 09/01/19 00:14 Zanaflex PO 4 mg HS KELLEY Administration - Exam General Appearance: awake alert Eye: PERRL, anicteric sclera ENT: no oropharyngeal lesions, moist mucosa Neck: supple, no JVD Heart: RRR, no murmur Respiratory: no wheezes, no rales Gastrointestinal: soft, non-tender, non-distended, normal bowel sounds Extremities: no cyanosis, no edema Neurological: cranial nerve grossly intact, no focal deficits Hosp A/P (1) PNA (pneumonia) Code(s): J18.9 - PNEUMONIA, UNSPECIFIED ORGANISM Status: Acute Qualifiers: Pneumonia type: due to unspecified organism Laterality: bilateral (2) PVD (peripheral vascular disease) Code(s): I73.9 - PERIPHERAL VASCULAR DISEASE, UNSPECIFIED Status: Chronic (3) Chronic pain syndrome Code(s): G89.4 - CHRONIC PAIN SYNDROME Status: Chronic (4) CAD (coronary artery disease) Code(s): I25.10 - ATHSCL HEART DISEASE OF [place] CORONARY ARTERY W/O ANG PCTRS Status: Chronic Qualifiers: Coronary Disease-Associated Artery/Lesion type: bypass graft [place] vs. transplanted heart: [place] heart Associated angina: without angina Qualified Code(s): I25.810 - Atherosclerosis of coronary artery bypass graft(s) without angina pectoris (5) COPD (chronic obstructive pulmonary disease) Status: Chronic Qualifiers: COPD type: unspecified COPD Qualified Code(s): J44.9 - Chronic obstructive pulmonary disease, unspecified (6) Chronic stage c diastolic heart failure Code(s): I50.32 - CHRONIC DIASTOLIC (CONGESTIVE) HEART FAILURE Status: Chronic (7) GERD (gastroesophageal reflux disease) Code(s): K21.9 - GASTRO-ESOPHAGEAL REFLUX DISEASE WITHOUT ESOPHAGITIS Status: Chronic Qualifiers: Esophagitis presence: esophagitis presence not specified Qualified Code(s) : K21.9 - Gastro-esophageal reflux disease without esophagitis (8) Gout Code(s): M10.9 - GOUT, UNSPECIFIED Status: Chronic Qualifiers: Gout site: unspecified site (9) Hypertension Code(s): I10 - ESSENTIAL (PRIMARY) HYPERTENSION Status: Chronic Qualifiers: Hypertension type: essential hypertension Qualified Code(s): I10 - Essential (primary) hypertension (10) Rheumatoid arthritis Code(s): M06.9 - RHEUMATOID ARTHRITIS, UNSPECIFIED Status: Chronic Qualifiers: Rheumatoid arthritis location: unspecified site - Plan is on ceftriaxone and zithromax, nebs continue asp, plavix, norvasc, coreg, xarelto low dose daily, fentanyl tts hemostable he needs to ambulate in hallway i.spirometry patient has not followed up with for h/o lung mass from last 1 yr. He was scheduled for CT chest or PET scan but has not done it so far from last year.
[2019-09-01] MEDS: Diazepam 5 MG TAB PO PRN (17:14)
[2019-09-01] MEDS: HYDROcodone/Acetaminophen 10/325 mg Tablet PO PRN (17:21)
[2019-09-02] MEDS: Morphine 2 MG/ML SYRINGE SLOW IVP PRN ×2 (00:17→17:47)
[2019-09-02 05:39] LABS: #Basophils 0.1 thou/uL (0.0-0.2); #Eosinphils 1.2 thou/uL (0.0-0.7); #Lymphocytes 3.9 thou/uL (1.20-3.40); #Monocytes 1.1 thou/uL (0.11-0.59); #Neutrophils 7.6 thou/uL (1.40-6.50); %Basophils 0.6 % (0.0-1.0); %Eosinophils 8.5 % (0.0-10.0); %Lymphocytes 27.9 % (21.0-51.0); %Monocytes 8.1 % (0.0-10.0); Hemoglobin 12.4 g/dL (14.0-18.0); Mean Corpuscular HGB CONC 32.9 g/dL (32.0-36.0); Mean Corpuscular Hemoglobin 27.6 pg (27.0-31.0); Mean Corpuscular Volume 83.9 fL (78.0-98.0); Mean Platelet Volume 7.3 fL (7.4-10.4); Platelet Count 316 thou/uL (130-400); RBC Distribution Width 15.3 % (11.5-14.5); White Blood Cell (WBC) Count 13.9 thou/uL (4.8-10.8)
[2019-09-02 06:14] LABS: Anion Gap 15 mmol/L (10-20); BUN (Urea Nitrogen) 11 mg/dL (8.4-25.7); Calc. Creatinine Clearance 106 mL/min (70-130); Calcium 9.2 mg/dL (7.8-10.44); Carbon Dioxide 21 mmol/L (22-29); Chloride 101 mmol/L (98-107); Estimated GFR-MDRD 82; Glucose 76 mg/dL (70-105); Potassium 3.9 mmol/L (3.5-5.1); Sodium 133 mmol/L (136-145)
[2019-09-02] MEDS: HYDROcodone/Acetaminophen 10/325 mg Tablet PO PRN ×2 (08:19→16:03)
[2019-09-02] MEDS: Diazepam 5 MG TAB PO PRN (08:21)
[2019-09-02] MEDS: Clopidogrel Bisulfate 75 MG TAB PO SCH (08:22)
[2019-09-02] MEDS: Amlodipine 10 MG TAB PO SCH (08:22)
[2019-09-02] MEDS: Rivaroxaban 2.5 MG TAB PO SCH ×2 (08:22→16:03)
[2019-09-02] MEDS: Carvedilol 3.125 MG TAB PO SCH ×2 (08:22→16:03)
[2019-09-02] MEDS: cefTRIAXone\\ROCEPHIN 1 GM in Sodium Chloride 0.9% 100 ML IVPB SCH (08:23)
[2019-09-02] MEDS: Aspirin 81 mg Enteric Coated Tablet PO SCH (09:08)
[2019-09-02 09:56] LABS: HIV (1/2) Antibody/Antigen Non-Reactive (NonReactive); HIV 1/2 INDEX 0.15 S/CO (<1.00)
[2019-09-02] MEDS: Azithromycin 500 MG in Sodium Chloride 0.9% 250 ML 250 ML IVPB SCH (10:36)
[2019-09-02] MEDS ORDERED: predniSONE 20 MG TAB PO SCH (14:30)
--- NOTE | 2019-09-02 14:30 | PDOC.HOSPP ---
- Subjective Encounter Date: 09/02/19 Encounter Time: 08:00 Subjective: c/o pleuritic chest pain still, bodyaches + is ambulating in room no nausea or diarrhea - Objective Vital Signs & Weight: Vital Signs (12 hours) Temp Pulse Resp BP BP Pulse Ox 09/02/19 13:29 98.8 F 67 20 124/74 92 L 09/02/19 12:10 75 16 93 L 09/02/19 08:22 75 141/78 H 09/02/19 08:01 97.7 F 76 20 141/78 H 93 L 09/02/19 06:21 75 16 91 L Weight Weight 197 lb 4 oz I&O: 09/01/19 09/02/19 09/03/19 06:59 06:59 06:59 Intake Total 820 1020 Output Total 1100 640 Balance -280 380 Result Diagrams: 09/02/19 05:21 09/02/19 05:21 Hospitalist ROS - Medication Medications: Active Medications Generic Name Dose Route Start Last Admin Trade Name Freq PRN Reason Stop Dose Admin Hydrocodone Bitart/Acetaminophen 1 tab 09/01/19 13:13 09/02/19 08:19 [place] 10/325 PO 1 tab Q6H PRN Administration Pain Albuterol/Ipratropium 3 ml 08/31/19 19:00 09/02/19 12:10 Duoneb NEB 3 ml [id number] KELLEY Administration Amlodipine Besylate 10 mg 09/01/19 09:00 09/02/19 08:22 Norvasc PO 10 mg DAILY KELLEY Administration Aspirin 81 mg 09/01/19 09:00 09/02/19 09:08 Ecotrin PO 81 mg DAILY KELLEY Administration Carvedilol 3.125 mg 08/31/19 17:00 09/02/19 08:22 Coreg PO 3.125 mg BID-WM KELLEY Administration Cholecalciferol 10,000 units 09/01/19 09:00 09/02/19 08:21 Vitamin D3 PO 10,000 units DAILY KELLEY Administration Clopidogrel Bisulfate 75 mg 09/01/19 09:00 09/02/19 08:22 Plavix PO 75 mg DAILY KELLEY Administration Diazepam 5 mg 08/31/19 12:58 09/02/19 08:21 Valium PO 5 mg TIDPRN PRN Administration Anxiety Fentanyl 100 mcg 09/01/19 08:00 09/01/19 09:27 Duragesic TD 100 mcg Q2DAYS KELLEY Administration Azithromycin 500 mg/ Sodium 250 mls @ 250 mls/hr 09/01/19 09:00 09/02/19 10: 36 Chloride IVPB 250 mls 0900 KELLEY Administration Ceftriaxone Sodium 1 gm/ 100 mls @ 200 mls/hr 09/01/19 08:00 09/02/19 08:23 Sodium Chloride IVPB 100 mls 0800 KELLEY Administration Morphine Sulfate 2 mg 08/31/19 12:51 09/02/19 00:17 Morphine SLOW IVP 2 mg Q4H PRN Administration Pain Pantoprazole Sodium 40 mg 09/01/19 09:00 09/02/19 08:23 Protonix PO 40 mg DAILY KELLEY Administration Rivaroxaban 2.5 mg 08/31/19 17:00 09/02/19 08:22 Xarelto PO 2.5 mg BID-WM KELLEY Administration Tizanidine HCl 4 mg 08/31/19 21:00 09/01/19 19:40 Zanaflex PO 4 mg HS KELLEY Administration - Exam General Appearance: awake alert Eye: PERRL, anicteric sclera ENT: no oropharyngeal lesions, moist mucosa Neck: supple, no JVD Heart: no murmur, no gallops Respiratory: no wheezes, no rales, rhonchi Gastrointestinal: soft, non-tender, non-distended, normal bowel sounds Extremities: no cyanosis, no edema Neurological: cranial nerve grossly intact, no focal deficits Psychiatric: normal affect, A&O x 3 Hosp A/P (1) PNA (pneumonia) Code(s): J18.9 - PNEUMONIA, UNSPECIFIED ORGANISM Status: Acute Qualifiers: Pneumonia type: due to unspecified organism Laterality: bilateral (2) PVD (peripheral vascular disease) Code(s): I73.9 - PERIPHERAL VASCULAR DISEASE, UNSPECIFIED Status: Chronic (3) Chronic pain syndrome Code(s): G89.4 - CHRONIC PAIN SYNDROME Status: Chronic (4) CAD (coronary artery disease) Code(s): I25.10 - ATHSCL HEART DISEASE OF [place] CORONARY ARTERY W/O ANG PCTRS Status: Chronic Qualifiers: Coronary Disease-Associated Artery/Lesion type: bypass graft [place] vs. transplanted heart: [place] heart Associated angina: without angina Qualified Code(s): I25.810 - Atherosclerosis of coronary artery bypass graft(s) without angina pectoris (5) COPD (chronic obstructive pulmonary disease) Status: Chronic Qualifiers: COPD type: unspecified COPD Qualified Code(s): J44.9 - Chronic obstructive pulmonary disease, unspecified (6) Chronic stage c diastolic heart failure Code(s): I50.32 - CHRONIC DIASTOLIC (CONGESTIVE) HEART FAILURE Status: Chronic (7) GERD (gastroesophageal reflux disease) Code(s): K21.9 - GASTRO-ESOPHAGEAL REFLUX DISEASE WITHOUT ESOPHAGITIS Status: Chronic Qualifiers: Esophagitis presence: esophagitis presence not specified Qualified Code(s) : K21.9 - Gastro-esophageal reflux disease without esophagitis (8) Gout Code(s): M10.9 - GOUT, UNSPECIFIED Status: Chronic Qualifiers: Gout site: unspecified site (9) Hypertension Code(s): I10 - ESSENTIAL (PRIMARY) HYPERTENSION Status: Chronic Qualifiers: Hypertension type: essential hypertension Qualified Code(s): I10 - Essential (primary) hypertension (10) Rheumatoid arthritis Code(s): M06.9 - RHEUMATOID ARTHRITIS, UNSPECIFIED Status: Chronic Qualifiers: Rheumatoid arthritis location: unspecified site - Plan is on ceftriaxone and zithromax, nebs add low dose prednisone due to pleuritic pain which is persistent now. continue asp, plavix, norvasc, coreg, xarelto low dose daily, fentanyl tts hemostable he needs to ambulate in hallway i.spirometry patient has not followed up with /Aditya Monteiro for h/o lung mass from last 1 yr. He was scheduled for CT chest or PET scan but has not done it so far from last year. Not sure if current findings on CT chest if they are lymphagitic spread?, await pulm advice
[2019-09-02] MEDS: tiZANidine HCl 4 MG TAB PO SCH (20:07)
[2019-09-03] MEDS: HYDROcodone/Acetaminophen 10/325 mg Tablet PO PRN ×3 (02:11→18:27)
--- NOTE | 2019-09-03 02:48 | CON ---
DATE OF CONSULTATION: 09/02/2019 SERVICE: Pulmonary Medicine. REASON FOR CONSULTATION: Pulmonary infiltrate. HISTORY OF PRESENT ILLNESS: The patient is a 59-year-old white male with past medical history significant for pulmonary nodules. That being said, he was previously lost to follow up for over a year. He was in his usual state of health from a respiratory standpoint up until he had a heart attack about 6 months ago. Since then, he has had a little bit of dyspnea that limits his activity. He was in his usual state of health until about 5 days prior to admission when he started having increased in febrile illness, chills, cough, and was liberating green and yellow phlegm. Ultimately, this progressed and he presented to the emergency department. He was discovered to have infiltrates on chest x-ray and initiated on broad-spectrum antibiotics. He continues to cough and intermittently has brought up a little bit of blood throughout the course of today. This is new during this hospital stay. His weight has been stable up until this event. He denies having any significant night sweats going on for several months. Otherwise, he is in his usual state of health and has multiple complaints of pain. He has back pain, chest pain, leg pain. PAST MEDICAL HISTORY: 1. Hypertension. 2. Peripheral vascular disease. 3. Rheumatoid arthritis. 4. Gout. 5. Lung cancer? (no pathology in our system here). PAST SURGICAL HISTORY: 1. Lumbar surgery. 2. Coronary artery bypass graft x2 vessels. 3. Percutaneous coronary intervention with coronary stents. 4. Left common iliac artery stent. 5. Left superficial femoral artery to tibioperoneal trunk bypass. FAMILY HISTORY: Noncontributory. SOCIAL HISTORY: Negative for alcohol, tobacco, or illicit drug use. ALLERGIES: NO KNOWN DRUG ALLERGIES. MEDICATIONS: List of his inpatient medications was reviewed. Multiple updates were made at this time. REVIEW OF SYSTEMS: General, head, ears, eyes, nose, throat, cardiovascular, respiratory, GI, , musculoskeletal, neurologic, and skin are negative except as mentioned in the HPI. PHYSICAL EXAMINATION: VITAL SIGNS: Afebrile; pulse 67; blood pressure 126/76; respirations 18; saturation 95%, currently on 1 L nasal cannula. GENERAL: The patient is awake and alert, in no apparent distress. LUNGS: Very good air entry with no prolonged expiratory phase or wheezing present. HEART: Normal rate. Regular. ABDOMEN: Soft, nontender, and nondistended. Bowel sounds are positive. MUSCULOSKELETAL: No cyanosis or clubbing. There is no pitting in the bilateral lower extremities. NEUROLOGIC: Grossly nonfocal. LABORATORY DATA: WBC 13.9 and downtrending, hemoglobin 12.4, and platelets 316,000. D-dimer 2.5. Creatinine 0.94 and downtrending. Basic metabolic profile is otherwise unremarkable. Lactate 1.2. BNP, CK-MB, and troponin are all unremarkable. Alkaline phosphatase minimally elevated at 115. Liver function studies are otherwise unremarkable. Urinalysis is negative. HIV 1 and 2 are nonreactive. Respiratory virus panel is negative. Influenza A and B swab were negative. Blood cultures x2 are unremarkable today. IMAGING DATA: CTA of the chest demonstrates bilateral nodular infiltrates are present throughout bilateral lung martin. They more predominantly displayed in the dependent and basilar regions. Interstitial fullness as well as ground-glass opacifications and some minimal areas of overt consolidating changes are present. Most of these lesions appear to be centrilobular in distribution. There is a small pleural effusion present bilaterally. It is slightly more pronounced on the right compared to the left. The left atrium is dilated, compared to December of 2018, these infiltrates are new based on chest x-ray criteria. ASSESSMENT: 1. Acute hypoxic respiratory failure, mild. 2. Community-acquired pneumonia. 3. Acute bronchitis. 4. Chronic pain syndrome. 5. Chronic diastolic heart failure. 6. Vasculopath. 7. History of rheumatoid arthritis. DISCUSSION AND PLAN: Agree with antibiotics for community-acquired coverage. We will continue prednisone. We will schedule some nebulized medications three times daily. Ultimately, he will need a repeat chest x-ray and/or CT of the chest within 4 to 6 weeks after discharge from the hospital, make certain these infiltrates clear. If they do not, additional investigation like bronchoscopy with transcutaneous biopsy and/or open lung biopsy may need to be considered. Dr. Reyes has an established relationship with Mr. Sinha and will assume coverage in the morning. Job ID: [id number]
[2019-09-03] MEDS: Diazepam 5 MG TAB PO PRN ×3 (05:27→20:24)
[2019-09-03] MEDS ORDERED: predniSONE 20 MG TAB PO SCH (08:00)
[2019-09-03] MEDS: cefTRIAXone\\ROCEPHIN 1 GM in Sodium Chloride 0.9% 100 ML IVPB SCH (08:29)
[2019-09-03] MEDS: Clopidogrel Bisulfate 75 MG TAB PO SCH (08:31)
[2019-09-03] MEDS: Aspirin 81 mg Enteric Coated Tablet PO SCH (08:32)
[2019-09-03] MEDS: predniSONE 20 MG TAB PO SCH (08:32)
[2019-09-03] MEDS: Carvedilol 3.125 MG TAB PO SCH ×2 (08:32→16:33)
[2019-09-03] MEDS: Rivaroxaban 2.5 MG TAB PO SCH ×2 (08:33→16:33)
[2019-09-03] MEDS: Amlodipine 10 MG TAB PO SCH (08:33)
[2019-09-03] MEDS: Azithromycin 500 MG in Sodium Chloride 0.9% 250 ML 250 ML IVPB SCH (10:01)
[2019-09-03] MEDS: fentaNYL 100 mcg/hour Patch TD SCH (10:27)
--- NOTE | 2019-09-03 15:50 | PDOC.HOSPP ---
- Subjective Encounter Date: 09/03/19 Encounter Time: 07:30 Subjective: pleuritic chest pain is slightly better still has it also has gen aches and pains is amb in room and not in hallway - Objective Vital Signs & Weight: Vital Signs (12 hours) Temp Pulse Resp BP BP Pulse Ox 09/03/19 14:19 75 16 92 L 09/03/19 12:00 98.5 F 76 16 113/69 92 L 09/03/19 08:33 73 112/71 09/03/19 08:26 97 09/03/19 08:00 98.4 F 72 16 112/72 97 09/03/19 07:22 76 16 92 L 09/03/19 04:30 98.4 F 76 18 146/82 H 93 L Weight Weight 197 lb 4 oz I&O: 09/02/19 09/03/19 09/04/19 06:59 06:59 06:59 Intake Total 1020 1350 360 Output Total 640 4 Balance 380 1350 356 Result Diagrams: 09/02/19 05:21 09/02/19 05:21 Hospitalist ROS - Medication Medications: Active Medications Generic Name Dose Route Start Last Admin Trade Name Freq PRN Reason Stop Dose Admin Hydrocodone Bitart/Acetaminophen 1 tab 09/01/19 13:13 09/03/19 12:45 [place] 10/325 PO 1 tab Q6H PRN Administration Pain Albuterol/Ipratropium 3 ml 08/31/19 19:00 09/03/19 14:19 Duoneb NEB 3 ml [id number] KELLEY Administration Amlodipine Besylate 10 mg 09/01/19 09:00 09/03/19 08:33 Norvasc PO 10 mg DAILY KELLEY Administration Aspirin 81 mg 09/01/19 09:00 09/03/19 08:32 Ecotrin PO 81 mg DAILY KELLEY Administration Carvedilol 3.125 mg 08/31/19 17:00 09/03/19 08:32 Coreg PO 3.125 mg BID-WM KELLEY Administration Cholecalciferol 10,000 units 09/01/19 09:00 09/03/19 08:31 Vitamin D3 PO 10,000 units DAILY KELLEY Administration Clopidogrel Bisulfate 75 mg 09/01/19 09:00 09/03/19 08:31 Plavix PO 75 mg DAILY KELLEY Administration Diazepam 5 mg 08/31/19 12:58 09/03/19 12:45 Valium PO 5 mg TIDPRN PRN Administration Anxiety Fentanyl 100 mcg 09/01/19 08:00 09/03/19 10:27 Duragesic TD 100 mcg Q2DAYS KELLEY Administration Azithromycin 500 mg/ Sodium 250 mls @ 250 mls/hr 09/01/19 09:00 09/03/19 10: 01 Chloride IVPB 250 mls 0900 KELLEY Administration Ceftriaxone Sodium 1 gm/ 100 mls @ 200 mls/hr 09/01/19 08:00 09/03/19 08:29 Sodium Chloride IVPB 100 mls 0800 KELLEY Administration Morphine Sulfate 2 mg 08/31/19 12:51 09/02/19 17:47 Morphine SLOW IVP 2 mg Q4H PRN Administration Pain Pantoprazole Sodium 40 mg 09/01/19 09:00 09/03/19 08:32 Protonix PO 40 mg DAILY KELLEY Administration Prednisone 40 mg 09/03/19 08:00 09/03/19 08:32 Prednisone PO 09/06/19 08:01 40 mg QAM-WM KELLEY Administration Rivaroxaban 2.5 mg 08/31/19 17:00 09/03/19 08:33 Xarelto PO 2.5 mg BID-WM KELLEY Administration Tizanidine HCl 4 mg 08/31/19 21:00 09/02/19 20:07 Zanaflex PO 4 mg HS KELLEY Administration - Exam General Appearance: awake alert Eye: PERRL, anicteric sclera ENT: no oropharyngeal lesions, moist mucosa Neck: supple, no JVD Heart: RRR, no murmur Respiratory: no wheezes, no rales Gastrointestinal: soft, non-tender, non-distended, normal bowel sounds Extremities: no cyanosis, no edema Neurological: cranial nerve grossly intact, no focal deficits Hosp A/P (1) PNA (pneumonia) Code(s): J18.9 - PNEUMONIA, UNSPECIFIED ORGANISM Status: Acute Qualifiers: Pneumonia type: due to unspecified organism Laterality: bilateral (2) PVD (peripheral vascular disease) Code(s): I73.9 - PERIPHERAL VASCULAR DISEASE, UNSPECIFIED Status: Chronic (3) Chronic pain syndrome Code(s): G89.4 - CHRONIC PAIN SYNDROME Status: Chronic (4) CAD (coronary artery disease) Code(s): I25.10 - ATHSCL HEART DISEASE OF [place] CORONARY ARTERY W/O ANG PCTRS Status: Chronic Qualifiers: Coronary Disease-Associated Artery/Lesion type: bypass graft [place] vs. transplanted heart: [place] heart Associated angina: without angina Qualified Code(s): I25.810 - Atherosclerosis of coronary artery bypass graft(s) without angina pectoris (5) COPD (chronic obstructive pulmonary disease) Status: Chronic Qualifiers: COPD type: unspecified COPD Qualified Code(s): J44.9 - Chronic obstructive pulmonary disease, unspecified (6) Chronic stage c diastolic heart failure Code(s): I50.32 - CHRONIC DIASTOLIC (CONGESTIVE) HEART FAILURE Status: Chronic (7) GERD (gastroesophageal reflux disease) Code(s): K21.9 - GASTRO-ESOPHAGEAL REFLUX DISEASE WITHOUT ESOPHAGITIS Status: Chronic Qualifiers: Esophagitis presence: esophagitis presence not specified Qualified Code(s) : K21.9 - Gastro-esophageal reflux disease without esophagitis (8) Gout Code(s): M10.9 - GOUT, UNSPECIFIED Status: Chronic Qualifiers: Gout site: unspecified site (9) Hypertension Code(s): I10 - ESSENTIAL (PRIMARY) HYPERTENSION Status: Chronic Qualifiers: Hypertension type: essential hypertension Qualified Code(s): I10 - Essential (primary) hypertension (10) Rheumatoid arthritis Code(s): M06.9 - RHEUMATOID ARTHRITIS, UNSPECIFIED Status: Chronic Qualifiers: Rheumatoid arthritis location: unspecified site - Plan is on ceftriaxone and zithromax, nebs prednisone due to pleuritic pain which is persistent now. continue asp, plavix, norvasc, coreg, xarelto low dose daily, fentanyl tts, diazepam tid prn, tizanidine. hemostable he needs to ambulate in hallway i.spirometry patient has not followed up with /Aditya Monteiro for h/o lung mass from last 1 yr. He was scheduled for CT chest or PET scan but has not done it so far from last year. Not sure if current findings on CT chest if they are lymphagitic spread?, await pulm advice dc plan per pulm advice.
[2019-09-03] MEDS: tiZANidine HCl 4 MG TAB PO SCH (20:24)
[2019-09-04] MEDS: HYDROcodone/Acetaminophen 10/325 mg Tablet PO PRN ×2 (07:12→16:53)
[2019-09-04] MEDS: Diazepam 5 MG TAB PO PRN ×2 (07:13→19:43)
[2019-09-04] MEDS: cefTRIAXone\\ROCEPHIN 1 GM in Sodium Chloride 0.9% 100 ML IVPB SCH (08:53)
[2019-09-04] MEDS: Aspirin 81 mg Enteric Coated Tablet PO SCH (08:54)
[2019-09-04] MEDS: predniSONE 20 MG TAB PO SCH (08:54)
[2019-09-04] MEDS: Rivaroxaban 2.5 MG TAB PO SCH ×2 (08:55→16:51)
[2019-09-04] MEDS: Clopidogrel Bisulfate 75 MG TAB PO SCH (08:55)
[2019-09-04] MEDS: Carvedilol 3.125 MG TAB PO SCH ×2 (08:56→16:51)
[2019-09-04] MEDS: Azithromycin 500 MG in Sodium Chloride 0.9% 250 ML 250 ML IVPB SCH (09:57)
[2019-09-04] MEDS: Amlodipine 10 MG TAB PO SCH (11:59)
--- NOTE | 2019-09-04 12:18 | PDOC.HOSPP ---
- Subjective Encounter Date: 09/04/19 Encounter Time: 09:30 Subjective: breathing better, pain is better but still has it is amb a bit outside room now - Objective Vital Signs & Weight: Vital Signs (12 hours) Temp Pulse Resp BP BP Pulse Ox 09/04/19 11:59 56 L 96/60 09/04/19 11:15 98.8 F 56 L 20 96/60 92 L 09/04/19 08:00 93 L 09/04/19 07:51 99.3 F 67 16 107/70 90 L 09/04/19 06:46 90 L 09/04/19 06:44 67 16 97 09/04/19 05:21 98.7 F 67 20 128/74 90 L Weight Weight 197 lb 4 oz I&O: 09/03/19 09/04/19 09/05/19 06:59 06:59 06:59 Intake Total 1350 1710 Output Total 4 Balance 1350 1706 Result Diagrams: 09/02/19 05:21 09/02/19 05:21 Hospitalist ROS - Medication Medications: Active Medications Generic Name Dose Route Start Last Admin Trade Name Freq PRN Reason Stop Dose Admin Hydrocodone Bitart/Acetaminophen 1 tab 09/01/19 13:13 09/04/19 07:12 [place] 10/325 PO 1 tab Q6H PRN Administration Pain Albuterol/Ipratropium 3 ml 08/31/19 19:00 09/04/19 06:44 Duoneb NEB 3 ml [id number] KELLEY Administration Amlodipine Besylate 10 mg 09/01/19 09:00 09/04/19 11:59 Norvasc PO Not Given DAILY KLELEY Aspirin 81 mg 09/01/19 09:00 09/04/19 08:54 Ecotrin PO 81 mg DAILY KELLEY Administration Carvedilol 3.125 mg 08/31/19 17:00 09/04/19 08:56 Coreg PO 3.125 mg BID-WM KELLEY Administration Cholecalciferol 10,000 units 09/01/19 09:00 09/04/19 11:57 Vitamin D3 PO 10,000 units DAILY KELLEY Administration Clopidogrel Bisulfate 75 mg 09/01/19 09:00 09/04/19 08:55 Plavix PO 75 mg DAILY KELLEY Administration Diazepam 5 mg 08/31/19 12:58 09/04/19 07:13 Valium PO 5 mg TIDPRN PRN Administration Anxiety Fentanyl 100 mcg 09/01/19 08:00 09/03/19 10:27 Duragesic TD 100 mcg Q2DAYS KELLEY Administration Azithromycin 500 mg/ Sodium 250 mls @ 250 mls/hr 09/01/19 09:00 09/04/19 09: 57 Chloride IVPB 250 mls 0900 KELLEY Administration Ceftriaxone Sodium 1 gm/ 100 mls @ 200 mls/hr 09/01/19 08:00 09/04/19 08:53 Sodium Chloride IVPB 100 mls 0800 KELLEY Administration Morphine Sulfate 2 mg 08/31/19 12:51 09/02/19 17:47 Morphine SLOW IVP 2 mg Q4H PRN Administration Pain Pantoprazole Sodium 40 mg 09/01/19 09:00 09/04/19 08:55 Protonix PO 40 mg DAILY KELLEY Administration Prednisone 40 mg 09/03/19 08:00 09/04/19 08:54 Prednisone PO 09/06/19 08:01 40 mg QAM-WM KELLEY Administration Rivaroxaban 2.5 mg 08/31/19 17:00 09/04/19 08:55 Xarelto PO 2.5 mg BID-WM KELLEY Administration Tizanidine HCl 4 mg 08/31/19 21:00 09/03/19 20:24 Zanaflex PO 4 mg HS KELLEY Administration - Exam General Appearance: awake alert Eye: PERRL, anicteric sclera ENT: no oropharyngeal lesions, moist mucosa Neck: supple, no JVD Heart: RRR, no murmur Respiratory: no wheezes, no rales Gastrointestinal: soft, non-tender, non-distended, normal bowel sounds Extremities: no cyanosis, no edema Neurological: cranial nerve grossly intact, no focal deficits Psychiatric: normal affect, A&O x 3 Hosp A/P (1) PNA (pneumonia) Code(s): J18.9 - PNEUMONIA, UNSPECIFIED ORGANISM Status: Acute Qualifiers: Pneumonia type: due to unspecified organism Laterality: bilateral (2) PVD (peripheral vascular disease) Code(s): I73.9 - PERIPHERAL VASCULAR DISEASE, UNSPECIFIED Status: Chronic (3) Chronic pain syndrome Code(s): G89.4 - CHRONIC PAIN SYNDROME Status: Chronic (4) CAD (coronary artery disease) Code(s): I25.10 - ATHSCL HEART DISEASE OF [place] CORONARY ARTERY W/O ANG PCTRS Status: Chronic Qualifiers: Coronary Disease-Associated Artery/Lesion type: bypass graft [place] vs. transplanted heart: [place] heart Associated angina: without angina Qualified Code(s): I25.810 - Atherosclerosis of coronary artery bypass graft(s) without angina pectoris (5) COPD (chronic obstructive pulmonary disease) Status: Chronic Qualifiers: COPD type: unspecified COPD Qualified Code(s): J44.9 - Chronic obstructive pulmonary disease, unspecified (6) Chronic stage c diastolic heart failure Code(s): I50.32 - CHRONIC DIASTOLIC (CONGESTIVE) HEART FAILURE Status: Chronic (7) GERD (gastroesophageal reflux disease) Code(s): K21.9 - GASTRO-ESOPHAGEAL REFLUX DISEASE WITHOUT ESOPHAGITIS Status: Chronic Qualifiers: Esophagitis presence: esophagitis presence not specified Qualified Code(s) : K21.9 - Gastro-esophageal reflux disease without esophagitis (8) Gout Code(s): M10.9 - GOUT, UNSPECIFIED Status: Chronic Qualifiers: Gout site: unspecified site (9) Hypertension Code(s): I10 - ESSENTIAL (PRIMARY) HYPERTENSION Status: Chronic Qualifiers: Hypertension type: essential hypertension Qualified Code(s): I10 - Essential (primary) hypertension (10) Rheumatoid arthritis Code(s): M06.9 - RHEUMATOID ARTHRITIS, UNSPECIFIED Status: Chronic Qualifiers: Rheumatoid arthritis location: unspecified site - Plan is on ceftriaxone and zithromax, nebs. May switch to omnicef if ok with pulm prednisone due to pleuritic pain till am. continue asp, plavix, norvasc, coreg, xarelto low dose daily, fentanyl tts, diazepam tid prn, tizanidine. hemostable he needs to ambulate more in hallway i.spirometry patient has not followed up with /Aditya Monteiro for h/o lung mass from last 1 yr. He was scheduled for CT chest or PET scan but has not done it so far from last year. Not sure if current findings on CT chest are lymphagitic spread?, await pulm advice dc plan per in am if ok with pulm.
[2019-09-04] MEDS: tiZANidine HCl 4 MG TAB PO SCH (19:41)
[2019-09-05] MEDS: HYDROcodone/Acetaminophen 10/325 mg Tablet PO PRN ×3 (01:57→17:27)
[2019-09-05] MEDS: predniSONE 20 MG TAB PO SCH ×2 (07:59→17:23)
[2019-09-05] MEDS: Aspirin 81 mg Enteric Coated Tablet PO SCH (07:59)
[2019-09-05] MEDS: cefTRIAXone\\ROCEPHIN 1 GM in Sodium Chloride 0.9% 100 ML IVPB SCH (07:59)
[2019-09-05] MEDS: Clopidogrel Bisulfate 75 MG TAB PO SCH (07:59)
[2019-09-05] MEDS: Rivaroxaban 2.5 MG TAB PO SCH ×2 (07:59→17:23)
[2019-09-05] MEDS: Carvedilol 3.125 MG TAB PO SCH ×2 (08:03→17:23)
[2019-09-05] MEDS: Amlodipine 10 MG TAB PO SCH (08:03)
[2019-09-05] MEDS: fentaNYL 100 mcg/hour Patch TD SCH (08:09)
[2019-09-05] MEDS: Diazepam 5 MG TAB PO PRN ×2 (08:24→19:50)
--- NOTE | 2019-09-05 09:00 | PRG ---
DATE OF SERVICE: 09/05/2019 SUBJECTIVE: A 59-year-old gentleman, who has been in the hospital several days for COPD exacerbation and bronchitis. OBJECTIVE: VITAL SIGNS: Temperature 98, pulse 80, blood pressure 130/74, saturations on room air, respiratory rate 18. GENERAL: He is weak. He is coughing. CHEST: Decreased breath sounds. Minimal rhonchi. CARDIAC: Normal S1 and S2. No gallops. ABDOMEN: No masses. IMPRESSION: Chronic obstructive pulmonary disease exacerbation, bronchitis. PLAN: From the Pulmonary standpoint, switching to oral medication. Hopefully, he can be discharged to home any time. Job ID: [id number]
[2019-09-05] MEDS: Azithromycin 500 MG in Sodium Chloride 0.9% 250 ML 250 ML IVPB SCH (09:24)
[2019-09-05] MEDS: Doxycycline 100 MG CAP PO SCH ×2 (09:30→19:50)
--- NOTE | 2019-09-05 13:20 | PDOC.HOSPP ---
- Subjective Encounter Date: 09/05/19 Encounter Time: 08:15 Subjective: breathing better, no new complaints - Objective Vital Signs & Weight: Vital Signs (12 hours) Temp Pulse Resp BP BP Pulse Ox 09/05/19 12:19 66 18 94 L 09/05/19 11:32 98.8 F 64 20 131/75 92 L 09/05/19 08:03 74 139/74 09/05/19 08:00 98 09/05/19 06:51 97 09/05/19 06:50 80 16 97 09/05/19 06:00 98.4 F 62 18 133/77 91 L Weight Weight 197 lb 4 oz I&O: 09/04/19 09/05/19 09/06/19 06:59 06:59 06:59 Intake Total 1710 2200 Output Total 4 400 Balance 1706 1800 Result Diagrams: 09/02/19 05:21 09/02/19 05:21 Hospitalist ROS - Medication Medications: Active Medications Generic Name Dose Route Start Last Admin Trade Name Freq PRN Reason Stop Dose Admin Hydrocodone Bitart/Acetaminophen 1 tab 09/01/19 13:13 09/05/19 08:24 [place] 10/325 PO 1 tab Q6H PRN Administration Pain Albuterol/Ipratropium 3 ml 08/31/19 19:00 09/05/19 12:19 Duoneb NEB 3 ml [id number] KELLEY Administration Amlodipine Besylate 10 mg 09/01/19 09:00 09/05/19 08:03 Norvasc PO 10 mg DAILY KELLEY Administration Aspirin 81 mg 09/01/19 09:00 09/05/19 07:59 Ecotrin PO 81 mg DAILY KELLEY Administration Carvedilol 3.125 mg 08/31/19 17:00 09/05/19 08:03 Coreg PO 3.125 mg BID-WM KELLEY Administration Cholecalciferol 10,000 units 09/01/19 09:00 09/05/19 08:12 Vitamin D3 PO 10,000 units DAILY KELLEY Administration Clopidogrel Bisulfate 75 mg 09/01/19 09:00 09/05/19 07:59 Plavix PO 75 mg DAILY KELLEY Administration Diazepam 5 mg 08/31/19 12:58 09/05/19 08:24 Valium PO 5 mg TIDPRN PRN Administration Anxiety Doxycycline Hyclate 100 mg 09/05/19 09:00 09/05/19 09:30 Vibramycin PO 100 mg BID KELLEY Administration Fentanyl 100 mcg 09/01/19 08:00 09/05/19 08:09 Duragesic TD 100 mcg Q2DAYS KELLEY Administration Azithromycin 500 mg/ Sodium 250 mls @ 250 mls/hr 09/01/19 09:00 09/05/19 09: 24 Chloride IVPB 250 mls 0900 KELLEY Administration Pantoprazole Sodium 40 mg 09/01/19 09:00 09/05/19 07:59 Protonix PO 40 mg DAILY KELLEY Administration Rivaroxaban 2.5 mg 08/31/19 17:00 09/05/19 07:59 Xarelto PO 2.5 mg BID-WM KELLEY Administration Tizanidine HCl 4 mg 08/31/19 21:00 09/04/19 19:41 Zanaflex PO 4 mg HS KELLEY Administration - Exam General Appearance: awake alert Eye: PERRL, anicteric sclera ENT: no oropharyngeal lesions, moist mucosa Neck: supple, no JVD Heart: RRR, no murmur Respiratory: no wheezes, no rales Gastrointestinal: soft, non-tender, non-distended, normal bowel sounds Extremities: no cyanosis, no edema Neurological: cranial nerve grossly intact, no focal deficits Psychiatric: normal affect, A&O x 3 Hosp A/P (1) PNA (pneumonia) Code(s): J18.9 - PNEUMONIA, UNSPECIFIED ORGANISM Status: Acute Qualifiers: Pneumonia type: due to unspecified organism Laterality: bilateral (2) PVD (peripheral vascular disease) Code(s): I73.9 - PERIPHERAL VASCULAR DISEASE, UNSPECIFIED Status: Chronic (3) Chronic pain syndrome Code(s): G89.4 - CHRONIC PAIN SYNDROME Status: Chronic (4) CAD (coronary artery disease) Code(s): I25.10 - ATHSCL HEART DISEASE OF [place] CORONARY ARTERY W/O ANG PCTRS Status: Chronic Qualifiers: Coronary Disease-Associated Artery/Lesion type: bypass graft [place] vs. transplanted heart: [place] heart Associated angina: without angina Qualified Code(s): I25.810 - Atherosclerosis of coronary artery bypass graft(s) without angina pectoris (5) COPD (chronic obstructive pulmonary disease) Status: Chronic Qualifiers: COPD type: unspecified COPD Qualified Code(s): J44.9 - Chronic obstructive pulmonary disease, unspecified (6) Chronic stage c diastolic heart failure Code(s): I50.32 - CHRONIC DIASTOLIC (CONGESTIVE) HEART FAILURE Status: Chronic (7) GERD (gastroesophageal reflux disease) Code(s): K21.9 - GASTRO-ESOPHAGEAL REFLUX DISEASE WITHOUT ESOPHAGITIS Status: Chronic Qualifiers: Esophagitis presence: esophagitis presence not specified Qualified Code(s) : K21.9 - Gastro-esophageal reflux disease without esophagitis (8) Gout Code(s): M10.9 - GOUT, UNSPECIFIED Status: Chronic Qualifiers: Gout site: unspecified site (9) Hypertension Code(s): I10 - ESSENTIAL (PRIMARY) HYPERTENSION Status: Chronic Qualifiers: Hypertension type: essential hypertension Qualified Code(s): I10 - Essential (primary) hypertension (10) Rheumatoid arthritis Code(s): M06.9 - RHEUMATOID ARTHRITIS, UNSPECIFIED Status: Chronic Qualifiers: Rheumatoid arthritis location: unspecified site - Plan is on ceftriaxone and zithromax, nebs. May switch to omnicef in am dc prednisone continue asp, plavix, norvasc, coreg, xarelto low dose daily, fentanyl tts, diazepam tid prn, tizanidine. hemostable he needs to ambulate more in hallway i.spirometry patient has not followed up with /Aditya Monteiro for h/o lung mass from last 1 yr. He was scheduled for CT chest or PET scan but has not done it so far from last year. Not sure if current findings on CT chest are lymphagitic spread?, await pulm advice dc plan per in am per Pulm advice
--- NOTE | 2019-09-05 15:34 | PQF ---
CLINICAL DOCUMENTATION IMPROVEMENT CLARIFICATION FORM: ICD-10 Updated PLEASE DO AN ADDENDUM TO THE PROGRESS NOTE WITH ANY DOCUMENTATION UPDATES OR ADDITIONS AND CARRY THROUGH TO DC SUMMARY. THANK YOU. DATE: 09/05/19 ATTN: DR. MASTERSON Please exercise your independent, professional judgment in responding to the clarification form. Clinical indicators are provided on the bottom of this form for your review Please check appropriate box(es): [ x ] Sepsis due to: (Pna, UTI, gangrenous gall bladder, etc.) ___pna [ ] SIRS due to non-infectious process (please specify etiology) [ ] with organ dysfunction [ ] without organ dysfunction [ ] Severe sepsis with acute organ dysfunction of: (Examples: respiratory failure, encephalopathy, acute kidney failure, other) [ ] Localized infection without sepsis [ ] Other diagnosis [ ] Unable to determine In addition, please specify: Present on Admission (POA): [ x ] Yes [ ] No [ ] Unable to determine For continuity of documentation, please document condition throughout progress notes and discharge summary. Thank You. CLINICAL INDICATORS - SIGNS / SYMPTOMS / LABS / RESULTS AND LOCATION IN MR ER NOTE: "SEPSIS" "PT REPORTS FEELING FEVERISH THE PAST COUPLE OF DAYS" "CHILLS" PER CONSULTATION REPORT 09/01 WBC 08/31: 16.6 RISKS: PNEUMONIA (PROGRESS NOTE ) H/O COPD (PROGRESS NOTE ) TREATMENT: IV AZITHROMYCIN (ER-3/) IV FLUIDS (ER) IV ROCEPHIN (ER-3/) OMNICEF (STARTED 09/04) VIBRAMYCIN (STARTED 09/04) BLOOD CULTURES (08/31) SAP Cardiothoracic Surgeon Crystal Reports Winform Viewer (This form is maintained as a part of the permanent medical record) 2014 [employer]. All Rights Reserved [email or web address] Office: [phone] RISHI
[2019-09-05] MEDS: Mometasone/Formoterol 120 PUFF INHALER INH SCH (18:37)
[2019-09-05 19:27] VITALS: TEMP 98.7
[2019-09-05] MEDS: tiZANidine HCl 4 MG TAB PO SCH (19:50)
[2019-09-05] MEDS: Cefdinir 300 MG CAP PO SCH (19:50)
[2019-09-06] MEDS: HYDROcodone/Acetaminophen 10/325 mg Tablet PO PRN ×2 (02:39→09:29)
[2019-09-06] MEDS: Mometasone/Formoterol 120 PUFF INHALER INH SCH (06:33)
--- NOTE | 2019-09-06 09:11 | PRG ---
DATE OF SERVICE: 09/06/2019 SUBJECTIVE: This morning, the patient is better, less short of breath, less cough. OBJECTIVE: VITAL SIGNS: Pulse 65, respirations 16, saturation on room air, blood pressure 130/80. CHEST: Minimal rhonchi. CARDIAC: Normal S1 and S2. No gallops. ABDOMEN: No masses. ASSESSMENT: Chronic obstructive pulmonary disease, bronchitis, exacerbation, improved. DISPOSITION: Home any time. Follow up in the office in 2 months. Job ID: [id number]
[2019-09-06] MEDS: Carvedilol 3.125 MG TAB PO SCH (09:18)
[2019-09-06] MEDS: predniSONE 20 MG TAB PO SCH (09:20)
[2019-09-06] MEDS: Rivaroxaban 2.5 MG TAB PO SCH (09:20)
[2019-09-06] MEDS: Amlodipine 10 MG TAB PO SCH (09:21)
[2019-09-06] MEDS: Aspirin 81 mg Enteric Coated Tablet PO SCH (09:22)
[2019-09-06] MEDS: Cefdinir 300 MG CAP PO SCH (09:24)
[2019-09-06] MEDS: Clopidogrel Bisulfate 75 MG TAB PO SCH (09:25)
[2019-09-06] MEDS: Doxycycline 100 MG CAP PO SCH (09:26)
[2019-09-06 09:28] VITALS: BP 147/77
--- NOTE | 2019-09-06 15:06 | DIS ---
DATE OF ADMISSION: 08/31/2019 DATE OF DISCHARGE: 09/06/2019 DISCHARGE DISPOSITION: To home. PRIMARY DISCHARGE DIAGNOSIS: Pneumonia with pleuritic chest pain. SECONDARY DISCHARGE DIAGNOSES: Peripheral vascular disease; chronic pain syndrome; coronary artery disease; chronic obstructive pulmonary disease; congestive heart failure with diastolic dysfunction, which is chronic with no acute exacerbation; gastroesophageal reflux disease; gout; hypertension; history of rheumatoid arthritis per the patient. PROCEDURES DONE DURING HOSPITALIZATION: CT angio chest done showed findings of pneumonia, no pulmonary embolism was seen. Blood cultures x2, no growth. Influenza A and B antigens were negative. Respiratory virus panel PCR was negative. Hemoglobin and hematocrit were 12 and 37, platelet count 316. BUN 11, creatinine 0.9. HIV 1 and 2, nonreactive. INPATIENT CONSULT: Dr. Reyes for Pulmonology. DISCHARGE PLAN: The patient to follow up with primary care physician in 1 week. He needs to follow up with Dr. Reyes in 2 to 3 weeks. BRIEF COURSE DURING HOSPITALIZATION: The patient initially got admitted on the with complaints of cough with expectoration and pleuritic chest pain. His CT angio chest showed findings suggestive of bilateral pneumonia. The patient likely has community-acquired pneumonia. He was placed on broad-spectrum IV antibiotics along with nebulization and brief steroids to help with his pain. He has responded well to above measures. The patient also has history of lung nodule and has not followed up with either Dr. Reyes or Dr. Aditya Monteiro for scheduled CT chest or PET scan in the last 1 year. He was scheduled twice, but the patient apparently has not followed up. He was counseled with regard to the same and to promptly follow up this time after 2 weeks. He was given prescriptions for Omnicef and doxycycline to continue for 6 days. He is hemodynamically stable, ambulating around 150 feet prior to discharge. DISCHARGE MEDICATIONS: 1. Prednisone 5 mg p.o. daily for another 3 days. 2. Doxycycline 100 mg twice daily for 6 days. 3. Omnicef 300 mg p.o. twice daily for 6 days. 4. Plavix 75 mg p.o. daily. 5. Coreg 3.125 mg twice daily. 6. Aspirin 81 mg daily. 7. Tizanidine 4 mg p.o. at bedtime. 8. Xarelto 2.5 mg twice daily. 9. Lasix 40 mg daily. 10. Fentanyl patch 100 mcg topical every 2 days. 11. Nexium 40 mg daily. 12. Diazepam 5 mg p.o. three times daily p.r.n. 13. Vitamin D3, 10,000 units p.o. daily. 14. Norvasc with valsartan 10/320 mg p.o. daily. 15. Albuterol nebulizer q.4 hourly p.r.n. ALLERGIES: NO KNOWN DRUG ALLERGIES. PLEASE NOTE, I HAVE SEEN AND EXAMINED THE PATIENT ON THE DAY OF DISCHARGE. Job ID: [id number]
--- NOTE | 2019-09-07 02:21 | PQF ---
SAP Precision Machinist Crystal Reports Winform Viewer DEYANIRA FRIEND VINAYA KUMAR MD [id number] [id number] CLINICAL DOCUMENTATION CLARIFICATION FORM: POST DISCHARGE Addendum to original discharge summary date: ____ Late entry note date: __ DATE: 09/29/19 ATTN: Keny Dillon Please exercise your independent, professional judgment in responding to the clarification form. Clinical indicators are provided on the bottom of this form for your review Can you please further clarify the specificity of Pneumonia? Please check appropriate box(s): [ ] Empirically treating Gram Negative Pneumonia [ ] Empirically treating Anaerobic Pneumonia [ ] Pneumonia secondary to (specify organism / underlying disease) [ ] Simple Pneumonia (community acquired - nosocomial) [ ] Bronchopneumonia [ ] Pneumonia of unknown etiology [ x] Other diagnosis _CAP [ ] Unable to determine In addition, please specify: Present on Admission (POA): [ x] Yes [ ] No [ ] Unable to determine For continuity of documentation, please document condition throughout progress notes and discharge summary. Thank You. CLINICAL INDICATORS - SIGNS / SYMPTOMS / LABS H and P pg.1- chief complaint cough and chest pain H and P pg.2- Community acquired pneumonia, most likely secondary to gram negative rods Consult pg/1 - Initiated with broad spectrum antibiotics DS pg.1- ,Pneumonia with pleuritic chest pain Laboratory- WBC 16.6, 11.9, 13.9 RISK FACTORS CAD- H and P pg.2 Acute hypoxic respiratory failure- Consult pg.2 Acute bronchitis- Consult pg.2 Chronic diastolic CHF- Consult pg.2 TREATMENTS: Pulmonary Consult 09/01 Dr. Chatterjee Broad spectrum antibiotics- DS pg.1 Prednisone- DS pg.1 Nebulization- DS pg.1 IV fluids-MAR Oxygen supplementation Chest X ray 08/31 Chest/Thorax CTA 08/31 Microbiology (This form is maintained as a part of the permanent medical record) 2014 [employer]. All Rights Reserved [email or web address]
== END 2019-09-06 11:55 | disposition home or self-care (01) | DRG 871 ==
LOC: ERS 06:17 → T4-B 11:20
PROVIDERS: ADMIT Internal Medicine; ATTEND Internal Medicine
DX: A41.9 Sepsis, unspecified organism (principal); J18.9 Pneumonia, unspecified organism; J96.01 Acute respiratory failure with hypoxia; I50.32 Chronic diastolic (congestive) heart failure; N17.9 Acute kidney failure, unspecified; J44.0 Chronic obstructive pulmonary disease with (acute) lower respiratory infection; J44.1 Chronic obstructive pulmonary disease with (acute) exacerbation; I25.810 Atherosclerosis of coronary artery bypass graft(s) without angina pectoris; M06.9 Rheumatoid arthritis, unspecified; M10.9 Gout, unspecified; I11.0 Hypertensive heart disease with heart failure; F41.9 Anxiety disorder, unspecified; I73.9 Peripheral vascular disease, unspecified; G89.4 Chronic pain syndrome; K21.9 Gastro-esophageal reflux disease without esophagitis; J20.9 Acute bronchitis, unspecified; I25.2 Old myocardial infarction; Z95.1 Presence of aortocoronary bypass graft; Z95.5 Presence of coronary angioplasty implant and graft; Z79.899 Other long term (current) drug therapy; Z79.01 Long term (current) use of anticoagulants; Z79.51 Long term (current) use of inhaled steroids; Z79.52 Long term (current) use of systemic steroids; Z79.82 Long term (current) use of aspirin
CPT/HCPCS: 36415; 71045; 71275; 80048; 80053; 81003; 82550; 82553; 83605; 83690; 83880; 84484; 85025; 85379; 87040; 87389; 87633; 87804; 93005; 94640; 96361; 96365; 96367; 96374; J0456; J0696; J2270; J3490; J7050; J7512; J7620; Q9967

== ENCOUNTER 2019-10-11 08:26 | Outpatient (CLI) | payer MEDICARE ==
--- NOTE | 2019-10-11 10:10 | CT ---
CHEST CT SCAN WITH IV CONTRAST: Date: 10/11/2019 HISTORY: Pulmonary nodule, recurrent pneumonia. Concern for lung cancer. COMPARISON: 08/31/2019 CT angiogram chest. FINDINGS: There is fairly extensive diffuse improvement involving the reticulonodular parenchymal changes in th e right upper lobe, right middle lobe, right lower lobe, and left lower lobe regions when compared to the prior study. There is some persistent reticulonodular parenchymal change, but again this is cons iderably diffusely improved. There are up to borderline size to minimally enlarged lymph nodes noted, including the prevascular region, paratracheal region, and subcarinal regions, but these all appear to be decreased in size to at worse stable when compared to the prior exam. Decreased pleural effusio ns bilaterally. No evidence for significant new intrathoracic process. Small hiatal hernia. There is some borderline to mild dilatation of some of the left-sided intrahepatic ducts with less distention of the gallbladder than seen on the prior study. IMPRESSION: 1.Improvement in the right and left lung diffuse reticulonodular parenchymal changes. 2. Generalized improvement in the size of the previously noted mediastinal lymph nodes. 3. Improvement in the previously noted small pleural effusions. 4. Borderline ductal dilatation of the left hepatic ducts with less distention of the gallbladder th an on the prior study. 5. Small stable hiatal hernia. 6. Continued short-term follow-up for continued improvement or stability. POS: RRE
== END 2019-10-11 08:27 | disposition home or self-care (01) ==
LOC: BICCT 08:26
PROVIDERS: ATTEND Internal Medicine Hematology & Oncology
DX: J18.9 Pneumonia, unspecified organism (principal); R91.8 Other nonspecific abnormal finding of lung field; J90 Pleural effusion, not elsewhere classified; K44.9 Diaphragmatic hernia without obstruction or gangrene; K82.8 Other specified diseases of gallbladder
CPT/HCPCS: 71260; 82565

== ENCOUNTER 2020-01-21 08:44 | Outpatient (CLI) | payer MEDICARE, OTHER ==
[2020-01-21 16:11] LABS: #Basophils 0.1 thou/uL (0.0-0.2); #Eosinphils 0.3 thou/uL (0.0-0.7); #Monocytes 1.3 thou/uL (0.11-0.59); #Neutrophils 8.5 thou/uL (1.40-6.50); %Basophils 0.6 % (0.0-1.0); %Eosinophils 2.2 % (0.0-10.0); %Monocytes 9.5 % (0.0-10.0); %Neutrophils 64.6 % (42.0-75.0); Hemoglobin 14.3 g/dL (14.0-18.0); Mean Corpuscular HGB CONC 31.8 g/dL (32.0-36.0); Mean Platelet Volume 7.4 fL (7.4-10.4); Platelet Count 404 thou/uL (130-400); RBC Distribution Width 15.3 % (11.5-14.5); Red Blood Cell (RBC) Count 5.29 mill/uL (4.70-6.10); White Blood Cell (WBC) Count 13.1 thou/uL (4.8-10.8)
[2020-01-21 16:23] LABS: ALT (SGPT) 25 U/L (8-55); AST (SGOT) 21 U/L (5-34); Alkaline Phosphatase 106 U/L (40-110); Anion Gap 12 mmol/L (10-20); BUN (Urea Nitrogen) 11 mg/dL (8.4-25.7); Bilirubin, Total 0.3 mg/dL (0.2-1.2); Calc. Creatinine Clearance 0 mL/min (70-130); Calcium 9.3 mg/dL (7.8-10.44); Carbon Dioxide 30 mmol/L (22-29); Chloride 102 mmol/L (98-107); Estimated GFR-MDRD 50; Globulin 2.8 g/dL (2.4-3.5); Glucose 158 mg/dL (70-105); Potassium 4.7 mmol/L (3.5-5.1); Protein, Total 6.8 g/dL (6.0-8.3); Sodium 139 mmol/L (136-145)
[2020-01-22 12:20] LABS: SARS-CoV-2 MS2 Positive; SARS-CoV-2 N Gene Negative; SARS-CoV-2 S Gene Negative; SARS-CoV-2 orf1ab Negative
== END 2020-01-21 08:45 | disposition home or self-care (01) ==
LOC: LABBT 08:44
PROVIDERS: ATTEND Internal Medicine Cardiovascular Disease
DX: Z01.812 Encounter for preprocedural laboratory examination (principal); Z11.59 Encounter for screening for other viral diseases; I42.4 Endocardial fibroelastosis
CPT/HCPCS: 80053; 85025; U0003; 87635

== ENCOUNTER 2020-03-17 06:13 | Outpatient (CLI) | payer MEDICARE, OTHER ==
[2020-03-17 14:15] LABS: INR-International Normal Ratio 1.1; PTT 31.1 sec (22.9-36.1); Prothrombin Time 14.2 sec (12.0-14.7)
[2020-03-17 14:20] LABS: #Basophils 0.1 thou/uL (0.0-0.2); #Eosinphils 0.3 thou/uL (0.0-0.7); #Lymphocytes 3.1 thou/uL (1.20-3.40); #Monocytes 1.2 thou/uL (0.11-0.59); #Neutrophils 7.5 thou/uL (1.40-6.50); %Eosinophils 2.7 % (0.0-10.0); %Lymphocytes 25.2 % (21.0-51.0); %Monocytes 9.8 % (0.0-10.0); %Neutrophils 61.3 % (42.0-75.0); Hemoglobin 14.2 g/dL (14.0-18.0); Mean Corpuscular HGB CONC 31.5 g/dL (32.0-36.0); Mean Corpuscular Volume 85.8 fL (78.0-98.0); Platelet Count 341 thou/uL (130-400); RBC Distribution Width 17.3 % (11.5-14.5); Red Blood Cell (RBC) Count 5.25 mill/uL (4.70-6.10); White Blood Cell (WBC) Count 12.2 thou/uL (4.8-10.8)
--- NOTE | 2020-03-17 14:50 | EKG ---
Test Reason : PREOP Blood Pressure : / mmHG Vent. Rate : 082 BPM Atrial Rate : 082 BPM P-R Int : 164 ms QRS Dur : 090 ms QT Int : 356 ms P-R-T Axes : 042 027 039 degrees QTc Int : 415 ms Normal sinus rhythm Normal ECG No previous ECGs available Confirmed by LIDIA DUBOIS M.D. ([id number]) on 03/17/2020 2:50:06 PM Referred By: SHERLY Confirmed By:LIDIA DUBOIS M.D.
[2020-03-17 19:35] LABS: ALT (SGPT) 12 U/L (8-55); AST (SGOT) 19 U/L (5-34); Albumin 4.2 g/dL (3.5-5.0); Alkaline Phosphatase 80 U/L (40-110); Anion Gap 19 mmol/L (10-20); BUN (Urea Nitrogen) 20 mg/dL (8.4-25.7); Bilirubin, Total 0.4 mg/dL (0.2-1.2); Calc. Creatinine Clearance 0 mL/min (70-130); Calcium 9.3 mg/dL (7.8-10.44); Carbon Dioxide 24 mmol/L (22-29); Cardiac Risk 6.3 (Less than 4.5); Chloride 102 mmol/L (98-107); Cholesterol 221 mg/dl (< 200 Desired); Estimated GFR-MDRD 35; Globulin 2.9 g/dL (2.4-3.5); Glucose 111 mg/dL (70-105); HDL Cholesterol 35 mg/dL (>60 Neg Risk); LDL Cholesterol, Calculated 124 mg/dL; Potassium 4.7 mmol/L (3.5-5.1); Protein, Total 7.1 g/dL (6.0-8.3); Sodium 140 mmol/L (136-145); Triglycerides 311 mg/dL (Less than 150)
[2020-03-18 13:00] LABS: SARS-CoV-2 MS2 Positive; SARS-CoV-2 N Gene Negative; SARS-CoV-2 S Gene Negative; SARS-CoV-2 by NAA Not Detected (NotDetected); SARS-CoV-2 orf1ab Negative
== END 2020-03-17 06:14 | disposition home or self-care (01) ==
LOC: LABBT 06:13
PROVIDERS: ATTEND Internal Medicine Cardiovascular Disease
DX: Z01.818 Encounter for other preprocedural examination (principal); Z20.828 Contact with and (suspected) exposure to other viral communicable diseases; I25.10 Atherosclerotic heart disease of native coronary artery without angina pectoris
CPT/HCPCS: 80053; 80061; 85025; 85610; 85730; 93005; U0003; 87635; 93010

== ENCOUNTER 2020-04-11 07:17 | Outpatient (CLI) | payer MEDICARE, OTHER ==
[2020-04-11 18:04] LABS: #Basophils 0.1 thou/uL (0.0-0.2); #Eosinphils 0.4 thou/uL (0.0-0.7); #Lymphocytes 2.3 thou/uL (1.20-3.40); #Monocytes 1.1 thou/uL (0.11-0.59); #Neutrophils 9.4 thou/uL (1.40-6.50); %Basophils 0.9 % (0.0-1.0); %Eosinophils 2.9 % (0.0-10.0); %Lymphocytes 17.5 % (21.0-51.0); %Monocytes 8.4 % (0.0-10.0); %Neutrophils 70.4 % (42.0-75.0); Hemoglobin 14.2 g/dL (14.0-18.0); Mean Corpuscular HGB CONC 32.8 g/dL (32.0-36.0); Mean Corpuscular Hemoglobin 27.8 pg (27.0-31.0); Mean Corpuscular Volume 84.8 fL (78.0-98.0); Mean Platelet Volume 7.8 fL (7.4-10.4); Platelet Count 343 thou/uL (130-400); RBC Distribution Width 16.4 % (11.5-14.5); Red Blood Cell (RBC) Count 5.11 mill/uL (4.70-6.10); White Blood Cell (WBC) Count 13.3 thou/uL (4.8-10.8)
[2020-04-11 18:17] LABS: ALT (SGPT) 23 U/L (8-55); AST (SGOT) 22 U/L (5-34); Albumin 3.8 g/dL (3.5-5.0); Alkaline Phosphatase 91 U/L (40-110); Anion Gap 15 mmol/L (10-20); BUN (Urea Nitrogen) 25 mg/dL (8.4-25.7); Bilirubin, Total 0.2 mg/dL (0.2-1.2); Calc. Creatinine Clearance 0 mL/min (70-130); Calcium 8.8 mg/dL (7.8-10.44); Carbon Dioxide 24 mmol/L (22-29); Cardiac Risk 6.3 (Less than 4.5); Chloride 101 mmol/L (98-107); Cholesterol 247 mg/dl (< 200 Desired); Estimated GFR-MDRD 43; Globulin 2.8 g/dL (2.4-3.5); Glucose 158 mg/dL (70-105); HDL Cholesterol 39 mg/dL (>60 Neg Risk); LDL Cholesterol, Calculated 147 mg/dL; Protein, Total 6.6 g/dL (6.0-8.3); Sodium 135 mmol/L (136-145); Triglycerides 307 mg/dL (Less than 150)
[2020-04-11 18:21] LABS: PTT 31.7 sec (22.9-36.1)
[2020-04-11 18:22] LABS: Prothrombin Time 13.1 sec (12.0-14.7)
[2020-04-12 15:22] LABS: SARS-CoV-2 MS2 Positive; SARS-CoV-2 N Gene Negative; SARS-CoV-2 S Gene Negative; SARS-CoV-2 by NAA Not Detected (NotDetected); SARS-CoV-2 orf1ab Negative
--- NOTE | 2020-04-14 17:26 | EKG ---
Test Reason : Blood Pressure : / mmHG Vent. Rate : 103 BPM Atrial Rate : 103 BPM P-R Int : 142 ms QRS Dur : 086 ms QT Int : 306 ms P-R-T Axes : 039 032 002 degrees QTc Int : 400 ms Sinus tachycardia Otherwise normal ECG When compared with ECG of 11-APR-2020 13:36, (Unconfirmed) No significant change was found Confirmed by DR. Yumiko DACOSTA ([id number]) on 04/14/2020 5:26:13 PM Referred By: DR DUBOIS Confirmed By:DR. Yumiko DACOSTA
== END 2020-04-11 07:18 | disposition home or self-care (01) ==
LOC: LABBT 07:17
PROVIDERS: ATTEND Internal Medicine Cardiovascular Disease
DX: Z01.818 Encounter for other preprocedural examination (principal); I25.10 Atherosclerotic heart disease of native coronary artery without angina pectoris; Z20.828 Contact with and (suspected) exposure to other viral communicable diseases
CPT/HCPCS: 80053; 80061; 85025; 85610; 85730; 93005; U0003; 87635; 93010

== ENCOUNTER 2020-04-15 09:26 | Inpatient (IN) | payer MEDICARE, OTHER ==
[2020-04-15 17:05] LABS: #Basophils 0.1 thou/uL (0.0-0.2); #Eosinphils 0.3 thou/uL (0.0-0.7); #Lymphocytes 3.6 thou/uL (1.20-3.40); #Monocytes 1.2 thou/uL (0.11-0.59); #Neutrophils 12.7 thou/uL (1.40-6.50); %Basophils 0.5 % (0.0-1.0); %Eosinophils 1.8 % (0.0-10.0); %Monocytes 6.7 % (0.0-10.0); Hemoglobin 13.9 g/dL (14.0-18.0); Mean Corpuscular HGB CONC 31.9 g/dL (32.0-36.0); Mean Corpuscular Hemoglobin 27.3 pg (27.0-31.0); Mean Corpuscular Volume 85.4 fL (78.0-98.0); Mean Platelet Volume 7.6 fL (7.4-10.4); Platelet Count 349 thou/uL (130-400); RBC Distribution Width 16.7 % (11.5-14.5); Red Blood Cell (RBC) Count 5.09 mill/uL (4.70-6.10); White Blood Cell (WBC) Count 17.8 thou/uL (4.8-10.8)
--- NOTE | 2020-04-15 17:22 | HP ---
PRIMARY DIRECT SALES PROFESSIONAL: Matthew Orellana MD CHIEF COMPLAINT: Shortness of breath with exertion. HISTORY OF PRESENT ILLNESS: Mr. Sinha is a very pleasant 59-year-old white gentleman, who comes to the hospital for hydration overnight for a planned heart cath tomorrow. He has a history of coronary artery disease. He had an LAD stent bare metal in the past and has been noticing worsening of his symptoms recently which are consistent with his previous angina. We have had multiple attempts during this heart catheterization. The last time he was here, his creatinine had gone up to 1.9, which is much higher than his normal baseline, so his procedure was held. He is here today for hydration prior to his procedure. His creatinine is 1.6, was a little bit better than in the past. Hopefully it will be a lot lower with hydration overnight. He denies any chest pain, tightness, pressure, only the shortness of breath he was feeling before his last heart catheterization. PAST MEDICAL HISTORY: 1. History of hypertension. 2. Chronic anxiety. 3. Coronary artery disease status post bare-metal stent to his LAD in the past. 4. COPD. 5. History of pneumonia. 6. GERD. 7. Rheumatoid arthritis. 8. Chronic kidney disease, stage 3. 9. History of lung cancer. SURGICAL HISTORY: 1. Right hand surgery. 2. Back surgery. 3. 2.5 x 20 mm bare-metal stent to the mid LAD post to 2.6 mm. This was in January of 2019. 4. Bypass to his left lower extremity by Dr. Conn on September of 2019. FAMILY HISTORY: Mother with heart disease and malignancy. Father with heart disease, COPD, and renal cancer. SOCIAL HISTORY: Former smoker. No drugs. No alcohol. ALLERGIES: NO KNOWN DRUG ALLERGIES. OUTPATIENT MEDICATIONS: 1. Lasix 40 mg a day. 2. Xarelto 2.5 mg twice a day. 3. Nexium 40 mg. 4. Testosterone. 5. Hydrocodone acetaminophen. 6. Prednisone 10 mg a day. 7. Ventolin inhaler. 8. Diazepam. 9. Fentanyl patch. 10. Ipratropium with albuterol. 11. Flovent. 12. Olmesartan 40 mg a day. This was to replace valsartan. 13. Carvedilol 3.125. 14. Plavix 75 mg a day. REVIEW OF SYSTEMS: A 12-point review of systems was done and was found to be negative other than stated in the history of present illness. PHYSICAL EXAMINATION: VITAL SIGNS: Temperature 97.2, pulse 78, respiratory rate 18, sat 97% on room air, blood pressure 110/70. GENERAL: Awake, alert, oriented x3. No distress. HEENT: Normocephalic atraumatic. NECK: Supple. LUNGS: Clear. CARDIOVASCULAR: S1 and S2. No S3 or S4. No murmurs. ABDOMEN: Soft. Positive bowel sounds. EXTREMITIES: No edema. SKIN: Warm and dry. LABORATORY DATA: Laboratory work was reviewed. More recently on the , he had white count of 13, hemoglobin of 14, hematocrit 43, and platelet count of 343. Coags were normal. Chemistry with a sodium 135, normal electrolytes. Creatinine was 1.63 with a GFR 43. Triglycerides of 307, cholesterol total of 247, LDL of 147, HDL of 39. COVID-19 serology was not detected on 04/11/2020. ASSESSMENT/PLAN: 1. Coronary artery disease. 2. Chronic stable angina. Worsening. 3. Peripheral vascular disease. 4. Chronic kidney disease, stage 3. PLANS: 1. Overnight hydration for heart catheterization in the morning. I have spoken with him at length with risks and benefits of the procedure. Risks included, but not limited to stroke, OK, , bleeding, need for blood transfusion, limb loss, organ loss, renal failure due to contrast nephropathy. The patient verbalized understanding of this and agrees to proceed. If stenting is needed, drug-eluting stent will be placed instead of bare metal. 2. N.p.o. post midnight except medications. 3. We will get a chest x-ray this afternoon. 4. Further recommendations per results of coronary angiogram. Job ID: [id number]
[2020-04-15 17:23] LABS: Anion Gap 11 mmol/L (10-20); BUN (Urea Nitrogen) 23 mg/dL (8.4-25.7); Calc. Creatinine Clearance 48 mL/min (70-130); Calcium 8.6 mg/dL (7.8-10.44); Carbon Dioxide 30 mmol/L (22-29); Chloride 100 mmol/L (98-107); Estimated GFR-MDRD 33; Glucose 142 mg/dL (70-105); Potassium 4.2 mmol/L (3.5-5.1); Sodium 137 mmol/L (136-145)
[2020-04-15] MEDS: Sodium Chloride 0.9% 1,000 ML IV SCH (18:19)
--- NOTE | 2020-04-15 19:56 | RAD ---
CHEST ONE VIEW: 04/15/20 HISTORY: Shortness of breath. COMPARISON: 01/13/19 study. Heart size and mediastinum are within normal limits. The lungs are clear of any infiltrates. No signi ficant bony findings. IMPRESSION: No active intrathoracic disease. POS: OFF
[2020-04-16] MEDS: Sodium Chloride 0.9% 1,000 ML IV SCH ×3 (04:05→23:45)
[2020-04-16 04:52] LABS: #Basophils 0.1 thou/uL (0.0-0.2); #Eosinphils 0.3 thou/uL (0.0-0.7); #Lymphocytes 4.6 thou/uL (1.20-3.40); #Neutrophils 8.9 thou/uL (1.40-6.50); %Basophils 0.8 % (0.0-1.0); %Eosinophils 2.3 % (0.0-10.0); %Monocytes 6.5 % (0.0-10.0); %Neutrophils 59.4 % (42.0-75.0); Hemoglobin 13.3 g/dL (14.0-18.0); Mean Corpuscular HGB CONC 31.3 g/dL (32.0-36.0); Mean Corpuscular Hemoglobin 27.3 pg (27.0-31.0); Mean Corpuscular Volume 87.1 fL (78.0-98.0); Mean Platelet Volume 7.7 fL (7.4-10.4); Platelet Count 323 thou/uL (130-400); RBC Distribution Width 17.4 % (11.5-14.5); Red Blood Cell (RBC) Count 4.88 mill/uL (4.70-6.10); White Blood Cell (WBC) Count 14.9 thou/uL (4.8-10.8)
[2020-04-16 05:15] LABS: Anion Gap 9 mmol/L (10-20); BUN (Urea Nitrogen) 20 mg/dL (8.4-25.7); Calc. Creatinine Clearance 62 mL/min (70-130); Calcium 8.7 mg/dL (7.8-10.44); Carbon Dioxide 30 mmol/L (22-29); Chloride 102 mmol/L (98-107); Estimated GFR-MDRD 44; Glucose 185 mg/dL (70-105); Potassium 5.3 mmol/L (3.5-5.1); Sodium 136 mmol/L (136-145)
[2020-04-16] MEDS ORDERED: HYDROcodone/Acetaminophen 10/325 mg Tablet PO PRN (06:56)
[2020-04-16] MEDS ORDERED: Albuterol Sulfate 2.5 mg/3 ml Neb NEB PRN (06:56)
[2020-04-16] MEDS ORDERED: Diazepam 5 MG TAB PO PRN ×2 (06:57→09:42)
[2020-04-16] MEDS ORDERED: Diazepam 5 MG TAB PO SCH (07:00)
[2020-04-16] MEDS ORDERED: HYDROcodone/Acetaminophen 10/325 mg Tablet PO SCH (07:00)
[2020-04-16] MEDS ORDERED: tiZANidine HCl 4 MG TAB PO PRN (07:20)
[2020-04-16] MEDS ORDERED: VILANTEROL INH SCH (07:45)
[2020-04-16] MEDS ORDERED: UMECLIDINIUM INH SCH (07:45)
[2020-04-16] MEDS ORDERED: Lidocaine 1% (PF) 30 ML VIAL ONE (07:58)
[2020-04-16] MEDS ORDERED: Carvedilol 3.125 MG TAB PO SCH (08:00)
[2020-04-16] MEDS ORDERED: predniSONE 5 MG TAB PO SCH (08:00)
[2020-04-16] MEDS ORDERED: Midazolam HCl 2 mg/2 ml Vial ONE (08:42)
[2020-04-16] MEDS ORDERED: Fentanyl 100 MCG/2 ML VIAL ONE ×2 (08:43→11:19)
[2020-04-16] MEDS ORDERED: FLU VACC QS2020-21(6MOS UP)/PF 60 MCG/0.5 ML SYRINGE IM ONE (09:00)
[2020-04-16] MEDS ORDERED: Cholecalciferol 1,000 UNITS (25 MCG) TAB PO SCH (09:00)
[2020-04-16] MEDS ORDERED: Aspirin Chewable 81 MG TAB PO SCH (09:00)
[2020-04-16] MEDS ORDERED: Atorvastatin Calcium 40 MG TAB PO SCH (09:00)
[2020-04-16] MEDS ORDERED: Nitroglycerin 100MG/250ML BOT 250 ML ONE (09:02)
[2020-04-16] MEDS ORDERED: Heparin 10,000 UNITS/ 10 ML VIAL ONE (09:08)
[2020-04-16] MEDS ORDERED: Clopidogrel Bisulfate 300 MG TAB ONE (09:22)
[2020-04-16] MEDS ORDERED: ALBUTEROL SULFATE AD NEB PRN (09:42)
[2020-04-16] MEDS ORDERED: Non-Formulary Item 1 EACH (Tizanidine Hcl [Tizanidine Hcl] 4 MG Capsule) PO PRN (09:42)
[2020-04-16] MEDS ORDERED: fentaNYL 100 mcg/hour Patch TD SCH ×2 (09:45→12:00)
[2020-04-16] MEDS ORDERED: PROVENTIL INHALER 6.7 G (200 INHALATIONS) INH PRN (10:32)
[2020-04-16] MEDS ORDERED: Fentanyl 100 MCG/2 ML VIAL SLOW IVP SCH (12:30)
[2020-04-16] MEDS: Furosemide 40 MG TAB PO SCH (12:54)
[2020-04-16] MEDS: Losartan 25 MG TAB PO SCH (12:54)
[2020-04-16] MEDS: HYDROcodone/Acetaminophen 10/325 mg Tablet PO PRN ×2 (15:28→20:06)
--- NOTE | 2020-04-16 17:32 | EKG ---
Test Reason : POST STENT - LAD Blood Pressure : / mmHG Vent. Rate : 065 BPM Atrial Rate : 065 BPM P-R Int : 178 ms QRS Dur : 092 ms QT Int : 402 ms P-R-T Axes : 050 031 023 degrees QTc Int : 418 ms Normal sinus rhythm Normal ECG When compared with ECG of 11-APR-2020 13:37, Vent. rate has decreased BY [address] Timbo BOND ([id number]) on 04/16/2020 5:32:26 PM Referred By: SHERLY Confirmed By:DR. Timbo BOND
[2020-04-16] MEDS: Carvedilol 3.125 MG TAB PO SCH (17:35)
[2020-04-16] MEDS ORDERED: Fluticasone Propionate HFA 220 MCG AER INH SCH ×2 (18:30→21:00)
[2020-04-16] MEDS: Mometasone 200 MCG/PUFF (1 INHALER) INH SCH (19:12)
[2020-04-16] MEDS ORDERED: LIDOCAINE 5% OINTMENT TOP SCH (21:00)
[2020-04-16] MEDS ORDERED: LIDOCAINE TOP SCH (21:00)
[2020-04-17 04:19] LABS: #Basophils 0.1 thou/uL (0.0-0.2); #Eosinphils 0.5 thou/uL (0.0-0.7); #Lymphocytes 3.5 thou/uL (1.20-3.40); #Monocytes 0.8 thou/uL (0.11-0.59); #Neutrophils 6.4 thou/uL (1.40-6.50); %Eosinophils 4.6 % (0.0-10.0); %Lymphocytes 31.1 % (21.0-51.0); %Monocytes 6.9 % (0.0-10.0); %Neutrophils 56.5 % (42.0-75.0); Hemoglobin 13.4 g/dL (14.0-18.0); Mean Corpuscular HGB CONC 31.3 g/dL (32.0-36.0); Mean Corpuscular Hemoglobin 27.5 pg (27.0-31.0); Mean Corpuscular Volume 87.9 fL (78.0-98.0); Platelet Count 314 thou/uL (130-400); Red Blood Cell (RBC) Count 4.85 mill/uL (4.70-6.10); White Blood Cell (WBC) Count 11.3 thou/uL (4.8-10.8)
[2020-04-17 04:46] LABS: ALT (SGPT) 16 U/L (8-55); AST (SGOT) 13 U/L (5-34); Albumin 3.1 g/dL (3.5-5.0); Alkaline Phosphatase 65 U/L (40-110); Anion Gap 11 mmol/L (10-20); BUN (Urea Nitrogen) 13 mg/dL (8.4-25.7); Bilirubin, Total 0.2 mg/dL (0.2-1.2); Calc. Creatinine Clearance 72 mL/min (70-130); Calcium 8.6 mg/dL (7.8-10.44); Carbon Dioxide 28 mmol/L (22-29); Chloride 102 mmol/L (98-107); Estimated GFR-MDRD 52; Globulin 2.7 g/dL (2.4-3.5); Glucose 116 mg/dL (70-105); Potassium 4.3 mmol/L (3.5-5.1); Protein, Total 5.8 g/dL (6.0-8.3); Sodium 137 mmol/L (136-145)
[2020-04-17] MEDS: Mometasone 200 MCG/PUFF (1 INHALER) INH SCH (07:33)
[2020-04-17] MEDS ORDERED: predniSONE 5 MG TAB PO SCH (08:00)
[2020-04-17] MEDS: HYDROcodone/Acetaminophen 10/325 mg Tablet PO PRN (08:34)
[2020-04-17] MEDS: Losartan 25 MG TAB PO SCH (08:38)
[2020-04-17] MEDS: Carvedilol 3.125 MG TAB PO SCH ×2 (08:39→16:27)
[2020-04-17] MEDS: Furosemide 40 MG TAB PO SCH (08:40)
[2020-04-17] MEDS ORDERED: Non-Formulary Item 1 EACH (Esomeprazole Magnesium [Nexium 24hr] 20 MG Tablet.Dr) PO SCH (09:00)
[2020-04-17] MEDS ORDERED: Aspirin 81 mg Enteric Coated Tablet PO SCH (09:00)
[2020-04-17] MEDS ORDERED: Atorvastatin Calcium 40 MG TAB PO SCH (09:00)
[2020-04-17] MEDS ORDERED: CHOLECALCIFEROL 5000 UNIT PO SCH (09:00)
[2020-04-17] MEDS ORDERED: Clopidogrel Bisulfate 75 MG TAB PO SCH ×2 (09:00)
[2020-04-17] MEDS ORDERED: Cholecalciferol 1,000 UNITS (25 MCG) TAB PO SCH (09:00)
[2020-04-17] MEDS ORDERED: [UNRECOGNIZED DRUG - OTHER] PO SCH (09:00)
[2020-04-17] MEDS: Sodium Chloride 0.9% 1,000 ML IV SCH (11:09)
[2020-04-17 11:26] VITALS: TEMP 98.5
[2020-04-17 14:04] VITALS: BMI 28.9
[2020-04-17 16:42] VITALS: BP 111/58
--- NOTE | 2020-04-17 18:02 | DIS ---
DATE OF ADMISSION: 04/17/2020 DATE OF DISCHARGE: 04/17/2020 SUMMARY: Mr. Sinha was admitted overnight on Tuesday night for hydration for heart catheterization on Tuesday morning. He had this procedure done, was found to have significant in-stent restenoses on his LAD stent, so this was opened up with a 2.25 x 12 mm Synergy drug-eluting stent. He used to have a bare-metal stent there which seemed to be a little oversized. His stent was further dilated to 2.4 mm. He did well postoperatively and had no complaints. His right groin site was without issues. He denies any chest pain. No angina. No shortness of breath. He has tolerated his antiplatelet without issues, which he has been on for sometime now. DISCHARGE MEDICATIONS: Unchanged from admission, same medications as before. He is already on Plavix and very low-dose Xarelto for his PVD. Follow up in the office in 4 weeks. We will get him scheduled for this. TIME SPENT: 45 minutes spent on discharge instructions. Job ID: [id number]
--- NOTE | 2020-04-19 16:49 | EKG ---
Test Reason : Blood Pressure : / mmHG Vent. Rate : 061 BPM Atrial Rate : 061 BPM P-R Int : 200 ms QRS Dur : 092 ms QT Int : 386 ms P-R-T Axes : 046 032 025 degrees QTc Int : 388 ms Normal sinus rhythm Normal ECG When compared with ECG of 16-APR-2020 10:19, No significant change was found Confirmed by DR. Timbo BOND ([id number]) on 04/19/2020 4:49:12 PM Referred By: SHERLY Confirmed By:DR. Timbo BOND
== END 2020-04-17 16:55 | disposition home or self-care (01) | DRG 247 ==
LOC: 2NO 16:12 → OBSVTOIN 04-17 13:10
PROVIDERS: ADMIT Internal Medicine Cardiovascular Disease; ATTEND Internal Medicine Cardiovascular Disease
PROC: 027034Z Dilation of Coronary Artery, One Artery with Drug-eluting Intraluminal Device, Percutaneous Approach (ICD-10-PCS; principal; 2020-04-16)
PROC: 4A023N7 Measurement of Cardiac Sampling and Pressure, Left Heart, Percutaneous Approach (ICD-10-PCS; 2020-04-16)
PROC: B2111ZZ Fluoroscopy of Multiple Coronary Arteries using Low Osmolar Contrast (ICD-10-PCS; 2020-04-16)
PROC: B2151ZZ Fluoroscopy of Left Heart using Low Osmolar Contrast (ICD-10-PCS; 2020-04-16)
DX: T82.855A Stenosis of coronary artery stent, initial encounter (principal); I25.118 Atherosclerotic heart disease of native coronary artery with other forms of angina pectoris; Z20.828 Contact with and (suspected) exposure to other viral communicable diseases; Y83.1 Surgical operation with implant of artificial internal device as the cause of abnormal reaction of the patient, or of later complication, without mention of misadventure at the time of the procedure; I12.9 Hypertensive chronic kidney disease with stage 1 through stage 4 chronic kidney disease, or unspecified chronic kidney disease; F41.9 Anxiety disorder, unspecified; N18.30 Chronic kidney disease, stage 3 unspecified; J44.9 Chronic obstructive pulmonary disease, unspecified; K21.9 Gastro-esophageal reflux disease without esophagitis; M06.9 Rheumatoid arthritis, unspecified; I73.9 Peripheral vascular disease, unspecified; Z28.21 Immunization not carried out because of patient refusal; Z85.118 Personal history of other malignant neoplasm of bronchus and lung; Z95.828 Presence of other vascular implants and grafts; Z79.899 Other long term (current) drug therapy; Z79.82 Long term (current) use of aspirin; Z79.01 Long term (current) use of anticoagulants; Z79.02 Long term (current) use of antithrombotics/antiplatelets; Z79.51 Long term (current) use of inhaled steroids
CPT/HCPCS: 36415; 71045; 80048; 80053; 85025; 85347; 92928; 93005; 93010; 93458; 94640; 96360; 96361; 97139; 99152; 99153; C1874; C9600; G0378; J1644; J2001; J2250; J3010; J7512; J7611; J7620; Q9967